=== PATIENT | male | born 1945 | race Caucasian/White ===

== ENCOUNTER 2016-12-26 16:56 | Inpatient (IN) | payer OTHER ==
[~2016-12-26] VITALS: Ht 170.2 cm; Wt 77.3 kg
[2016-12-26] MEDS ORDERED: NORepinephrine 8MG/250 ML (PMX 250 ML ONE (17:27)
[2016-12-26] MEDS ORDERED: PROPOFOL 100 ML ONE (17:29)
[2016-12-26] MEDS ORDERED: SUCCINYLCHOLINE CHLORIDE 100 MG/5 ML SYG IV STA (17:38)
[2016-12-26] MEDS ORDERED: PROPOFOL 100 ML IV STA (17:38)
[2016-12-26] MEDS ORDERED: ETOMIDATE 20 MG INJ IV STA (17:38)
[2016-12-26] MEDS ORDERED: HYDR12.58 PO (17:42)
[2016-12-26] MEDS ORDERED: LISI20TA11 PO (17:42)
[2016-12-26] MEDS ORDERED: LISI20TA PO (17:42)
[2016-12-26] MEDS ORDERED: IBUP800T25 PO (17:43)
[2016-12-26 17:45] LABS: ADD SCAN DIFF NO
[2016-12-26] MEDS ORDERED: NORepinephrine 8MG/250 ML (PMX 250 ML IV STA (17:48)
[2016-12-26 17:49] LABS: ABNORMAL IP MESSAGE 1; HEMATOCRIT 25.6 % (42.0-52.0); MEAN CORPUSCULAR VOLUME 67.9 fl (82.0-101.0); RED BLOOD COUNT 3.77 10^6/ul (4.70-6.10); RED CELL DISTRIBUTION WIDTH 20.5 % (11.5-14.5)
[2016-12-26 17:52] LABS: ALBUMIN 3.2 g/dl (3.3-4.9); CHLORIDE 102 mmol/L (97-110); INR 1.16; PROTIME 14.8 Sec (12.2-14.2); PT RATIO 1.2; SODIUM 136 mmol/L (135-144)
[2016-12-26 17:53] LABS: PARTIAL THROMBOPLASTIN TIME 28.4 Sec (25.0-35.0); POTASSIUM 3.7 mmol/L (3.5-5.1)
[2016-12-26 17:54] LABS: ANION GAP 25 (8-16); BILIRUBIN,INDIRECT 0.1 mg/dl (0-1.1); BILIRUBIN,TOTAL 0.1 mg/dl (0.2-1.3); CARBON DIOXIDE 13 mmol/L (21-31); CREATININE 1.34 mg/dl (0.61-1.24)
[2016-12-26 17:55] LABS: ALANINE AMINOTRANSFERASE 16 IU/L (13-69); ALBUMIN/GLOBULIN RATIO 1.14; ALKALINE PHOSPHATASE 88 IU/L (42-121); ASPARTATE AMINO TRANSFERASE 98 IU/L (15-46); BLOOD UREA NITROGEN 25 mg/dl (7-20); CALCIUM 8.4 mg/dl (8.4-10.2); CREATINE KINASE 392 IU/L (23-200); GLUCOSE 339 mg/dl (70-220)
[2016-12-26 17:58] LABS: ACETAMINOPHEN < 10.0 ug/ml (10.0-30.0); ETHANOL < 10.0 mg/dl; SALICYLATE < 1.0 mg/dl (5.0-30.0)
[2016-12-26] MEDS ORDERED: CEFEPIME 2GM/50 ML (PMX) 50 ML IVPB STA (18:06)
[2016-12-26] MEDS ORDERED: SODIUM CHLORIDE 0.9% 1L BAG IV* STA (18:06)
[2016-12-26] MEDS ORDERED: VECURONIUM 100 MG in DEXTROSE 5% 100 ML IV ONE (18:13)
--- NOTE | 2016-12-26 18:20 | RADRPT ---
PROCEDURE: Chest 1 views. CLINICAL INDICATION: Abnormal breath sounds, altered mental status, central line placement. TECHNIQUE: AP views of the chest was obtained. COMPARISON: None. FINDINGS: The heart is large. Endotracheal tube has its tip approximately 1.6 cm above the esteban. Nasogastri c tube has its distal end in the expected location of the stomach. Left-sided central line has its tip in the expected location of the left innominate vein. Atelectasis is noted in the bilateral low er lobes. No consolidations are identified. No pneumothorax is seen. The osseous structures appea r grossly intact. IMPRESSION: Cardiomegaly . Endotracheal tube with its tip approximately 1.6 cm above the esteban. Retraction by approximately 2 cm can be considered. Nasogastric tube with its distal end in the expected location of the stomach. Left-sided central line with its tip in the expected location of the left innominate vein. Advancem ent by approximately 7 cm can be considered. No visualized pneumothorax. Scattered atelectasis in the bilateral lower lobes. RPTAT: AA .Jan Graham MD, Date Time Electronically viewed and signed by .Jan Graham MD, on 12/26/2016 18:19 .P/
[2016-12-26 18:24] LABS: T3 UPTAKE 36.5 % (23.5-40.5)
[2016-12-26] MEDS ORDERED: VECURONIUM 10 MG VIAL IV ONE (18:30)
[2016-12-26] MEDS ORDERED: LEVOFLOXACIN 750MG/D5W (PMX) 150 ML IVPB ONE (18:30)
[2016-12-26] MEDS ORDERED: ASPIRIN 600 MG SUPP PR ONE (18:30)
[2016-12-26] MEDS ORDERED: VANCOMYCIN 1 GM (PMX) 250 ML IVPB ONE (18:30)
[2016-12-26 18:32] LABS: AADO2 Arterial 284.8 mmHg (7.0-24.0); Arterial Base Excess -11.7 mmol/L (-3.0-3); Arterial COHb 0.3 % (0.0-3.0); Arterial Fraction of Oxyhgb 98.6 % (93.0-99.0); Arterial HCO3 14.2 mmol/L (22.0-26.0); Arterial MetHb 0.9 % (0.0-1.5); MODE VENT - AC
[2016-12-26 18:35] LABS: MAGNESIUM 2.5 mg/dl (1.7-2.5); PHOSPHORUS 7.3 mg/dl (2.5-4.9)
[2016-12-26 18:47] LABS: LYMPHOCYTES # 7.9 10^3/ul (0.8-2.9); MONOCYTE # 0.5 10^3/ul (0.3-0.9); NEUTROPHIL # 1.9 10^3/ul (1.6-7.5)
[2016-12-26 18:50] LABS: PLATELET ESTIMATE PLT APPEAR ADEQUATE
[2016-12-26 18:53] LABS: BURR CELLS OCCASIONAL; MICROCYTOSIS 1+
[2016-12-26 18:54] LABS: HYPOCHROMASIA 1+
[2016-12-26] MEDS ORDERED: IODIXANOL LOCM 100 ML BTL ONE (19:06)
[2016-12-26] MEDS ORDERED: SOD CHLORIDE 0.9% 100 ML ONE (19:06)
[2016-12-26 19:14] LABS: ADD UMIC NO; URINE BILIRUBIN (Dip) NEGATIVE (NEGATIVE); URINE BLOOD (Dip) NEGATIVE (NEGATIVE); URINE COLOR LT. YELLOW (YELLOW); URINE GLUCOSE (Dip) NEGATIVE (NEGATIVE); URINE KETONES (Dip) NEGATIVE (NEGATIVE); URINE LEUKOCYTE ESTERASE (Dip) NEGATIVE (NEGATIVE); URINE NITRITE (Dip) NEGATIVE (NEGATIVE); URINE TOTAL PROTEIN (Dip) NEGATIVE (NEGATIVE); URINE UROBILINOGEN (Dip) 0.2 E.U./dL (0.1-1.0)
[2016-12-26 19:37] LABS: BARBITURATES Negative (NEGATIVE); BENZODIAZEPINES Negative (NEGATIVE); CANNABINOIDS Negative (NEGATIVE)
[2016-12-26 19:38] LABS: COCAINE Negative (NEGATIVE); OPIATES Negative (NEGATIVE)
[2016-12-26] MEDS ORDERED: INSULIN LISPRO 100 UNIT/ML VIAL SC STA (19:39)
--- NOTE | 2016-12-26 19:39 | ERA ---
ER Documentation Chief Complaint Date/Time DATE: 12/26/16 TIME: 19:31 Chief Complaint R83, FULL ARREST, HAS PULSE ON ARRIVAL HPI This is a 71-year-old male with a past medical history of hypertension who presents to the emergency department brought in by EMS after he had a witnessed cardiac arrest by his just prior to arrival. His indicates that they were in the the [facility] prior to arrival to undergo a deposition when he stated he was complaining of shortness of breath. They got in the car and while driving the patient developed agonal respirations and continue to complain of shortness of breath but did not complain of any chest pain. His became very nervous and noticed a fire station which she immediately pulled into. EMS indicated that the patient had developed a PEA activity. They were unable to secure an airway and underwent bag mask ventilation. They administered CPR and a total of 3 mg of epinephrine and shocked the patient 3 times due to a ventricular fibrillation rhythm. The EMS performed an Accu-Chek was performed and normal. The patient en route had return of spontaneous circulation. The indicates they return from [facility] 2 months prior to arrival. He is compliant with his antihypertensive medications. He denies a recent remote headache. His states he has not complained any calf tenderness or swelling to his lower extremities. He has not had a productive or nonproductive cough recently and no recent hospitalizations. ROS All systems reviewed and are negative except as per history of present illness. Medications Home Meds Reported Medications Ibuprofen* (Ibuprofen*) 800 Mg Tab, 800 MG PO QID, TAB 12/26/16 Hydrochlorothiazide* (Hydrochlorothiazide*) 12.5 Mg Tablet, 12.5 MG PO DAILY, # 30 TAB 12/26/16 Lisinopril* (Lisinopril*) 20 Mg Tablet, 20 MG PO DAILY, #30 TAB 12/26/16 Discontinued Reported Medications Lisinopril* (Prinivil*) 20 Mg Tablet, 20 MG PO DAILY, #30 TAB 12/26/16 Allergies Allergies: Coded Allergies: No Known Allergy (Unverified , 12/26/16) PMhx/Soc Hx Alcohol Use: Yes (SOCIAL) Hx Tobacco Use: Yes Smoking Status: Current some day smoker Physical Exam Vitals Vital Signs Date Time Temp Pulse Resp B/P Pulse Ox O2 Delivery O2 Flow Rate FiO2 12/26/16 19:40 96.2 125 20 167/109 100 Mechanical Ventilator 12/26/16 19:25 96.2 115 20 155/94 100 Mechanical Ventilator 12/26/16 19:10 96.2 118 16 169/97 100 Mechanical Ventilator 12/26/16 19:00 96.2 125 20 166/109 100 Mechanical Ventilator 12/26/16 18:39 60 12/26/16 18:11 96 20 100 100 12/26/16 17:45 97 20 71/50 100 Mechanical Ventilator 12/26/16 17:30 102 21 171/151 100 Mechanical Ventilator 12/26/16 17:15 114 31 111/78 100 Mechanical Ventilator 12/26/16 17:04 127 16 77/52 100 Ambu Bag 12/26/16 17:00 129 17 0/0 99 Physical Exam Constitutional:Well-developed. In severe respiratory distress with agonal respirations HEENT:Normocephalic. Atraumatic.Pupils were equal round reactive to light. Pooling of secretions within the oropharynx peer.No tonsillar exudates. Conjunctival pallor peer Neck: No nuchal rigidity. No lymphadenopathy. No posterior cervical spine tenderness or step-offs. Respiratory: Agonal respirations. No wheezing on end auscultation bilaterally. Breath sounds were equal and symmetrical bilaterally with bag mask ventilation Cardiovascular: Tachycardic.No murmurs. No rubs were appreciated.S1, S2 normal. Distal pulses are palpable 2+ bilaterally. GI: Abdomen was soft. Nontender. Non Distended. No pulsatile abdominal masses or bruits. No rebound. No guarding. Bowel sounds were present and normal. Muscle skeletal: Patient was moving the bilateral upper extremities. No movement of the bilateral lower extremities. Skin: Diaphoretic. Pallor. Skin cool to the touch. NEURO: Patient was unresponsive. Withdrew to pain. Eyes did not open to pain. Aphasic Result Diagram: 12/26/16 1710 12/26/16 171 Results 24 hrs Laboratory Tests Test 12/26/16 17:10 12/26/16 17:28 12/26/16 17:38 12/26/16 19:55 White Blood Count 10.710^3/ul Red Blood Count 3.7710^6/ul Hemoglobin 6.4g/dl Hematocrit 25.6% Mean Corpuscular Volume 67.9fl Mean Corpuscular Hemoglobin 17.0pg Mean Corpuscular Hemoglobin Concent 25.0g/dl Red Cell Distribution Width 20.5% Platelet Count 23486^3/UL Mean Platelet Volume fl Neutrophils % 18.0% Band Neutrophils % 1.0% Lymphocytes % 74.0% Monocytes % 5.0% Eosinophils % % Basophils % % Myelocytes % 2.0% Nucleated Red Blood Cells % 1.0/100WBC Neutrophils # 1.910^3/ul Lymphocytes # 7.910^3/ul Monocytes # 0.510^3/ul Eosinophils # 10^3/ul Basophils # 10^3/ul Nucleated Red Blood Cells # 10^3/ul Platelet Estimate PLT APPEAR ADEQUATE Hypochromasia 1+ Microcytosis 1+ Prothrombin Time 14.8Sec Prothrombin Time Ratio 1.2 INR International Normalized Ratio 1.16 Activated Partial Thromboplast Time 28.4Sec Sodium Level 136mmol/L Potassium Level 3.7mmol/L Chloride Level 102mmol/L Carbon Dioxide Level 13mmol/L Anion Gap 25 Blood Urea Nitrogen 25mg/dl Creatinine 1.34mg/dl Glucose Level 339mg/dl Lactic Acid Level 14.0mmol/L 10.6mmol/L Calcium Level 8.4mg/dl Phosphorus Level 7.3mg/dl Magnesium Level 2.5mg/dl Total Bilirubin 0.1mg/dl Direct Bilirubin 0.00mg/dl Indirect Bilirubin 0.1mg/dl Aspartate Amino Transf (AST/SGOT) 98IU/L Alanine Aminotransferase (ALT/SGPT) 16IU/L Alkaline Phosphatase 88IU/L Ammonia 40umol/l Creatine Kinase 392IU/L Creatine Kinase Index 5.5 Creatinine Kinase MB (Mass) 21.40ng/ml Troponin I 10.300ng/ml Total Protein 6.0g/dl Albumin 3.2g/dl Globulin 2.80g/dl Albumin/Globulin Ratio 1.14 Free Thyroxine Index 2.19ug/ml Thyroxine (T4) 6.0ug/dl Triiodothyronine (T3) Uptake 36.5% Salicylates Level < 1.0mg/dl Acetaminophen Level < 10.0ug/ml Ethyl Alcohol Level < 10.0mg/dl Urine Color LT. YELLOW Urine Clarity SLIGHTLY CLOUDY Urine pH 6.0 Urine Specific [place] 1.020 Urine Ketones NEGATIVE Urine Nitrite NEGATIVE Urine Bilirubin NEGATIVE Urine Urobilinogen 0.2 E.U./dL Urine Leukocyte Esterase NEGATIVE Urine Hemoglobin NEGATIVE Urine Glucose NEGATIVE% Urine Total Protein NEGATIVE Urine Opiates Screen Negative Urine Barbiturates Negative Urine Amphetamines Screen Negative Urine Benzodiazepines Screen Negative Urine Cocaine Screen Negative Urine Cannabinoids Negative Blood Gas Specimen Source Blood arterial Arterial Blood Date Drawn 12/26/2016 6:24:54 PM Arterial Blood pH (Temp corrected) 7.268 Arterial Blood pCO2 (Temp correct) 31.8mmhg Arterial Blood pO2 (Temp corrected) 396.4mmHG Arterial Blood HCO3 14.2mmol/L Arterial Blood Base Excess -11.7mmol/L Arterial Blood Oxygen Saturation 99.8mmHG Harinder Test N/A Arterial Blood Gas Puncture Site Right Brachial Arterial Blood Carboxyhemoglobin 0.3% Arterial Blood Methemoglobin 0.9% Blood Gas A-a O2 Differential 284.8mmHg Oxyhemoglobin Percent 98.6% Total Hemoglobin 7.0g/dl Blood Gas Temperature 37.0C Blood Gas Respiration Rate 16.0 Blood Gas Actual Respiration Rate 16 Blood Gas Modality VENT - AC FiO2 100.0% Blood Gas Tidal Volume 550.0mL Blood Gas Low PEEP Setting 5.0cmH2O Blood Gas Critical Value Read Back DR. MAGAÑA Blood Gas Notified Whom Sena Blood Gas Notified Time 12/26/2016 6:32:36 PM Current Medications Medications (Trade) Dose Ordered Sig/[place] Route PRN Reason Start Time Stop Time Status Last Admin Dose Admin Norepinephrine 250 ml @ ud STK-MED ONCE .ROUTE 12/26/16 17:27 12/26/16 17:28 DC Propofol (Diprivan) 100 ml @ ud STK-MED ONCE .ROUTE 12/26/16 17:29 12/26/16 17:30 DC Succinylcholine Chloride (Anectine Syringe) 100 mg ONCE STAT IV 12/26/16 17:38 12/26/16 17:41 DC Etomidate 10 mg 10 mg ONCE STAT IV 12/26/16 17:38 12/26/16 17:41 DC Propofol 100 ml @ 0 mls/hr ONCE STAT IV 12/26/16 17:38 12/26/16 17:41 DC 12/26/16 18:11 Norepinephrine (Levophed) 250 ml @ 7.5 mls/hr ONCE STAT IV 12/26/16 17:48 12/28/16 03:07 12/26/16 17:56 Sodium Chloride 2400 ml 2,400 ml BOLUS OVER 2 HOURS STAT IV* 12/26/16 18:06 12/26/16 18:07 DC 12/26/16 18:12 Cefepime HCl 50 ml @ 100 mls/hr ONCE STAT IVPB 12/26/16 18:06 12/26/16 18:35 DC 12/26/16 18:34 Vancomycin HCl 250 ml @ 125 mls/hr ONCE ONCE IVPB 12/26/16 18:30 12/26/16 20:29 DC Levofloxacin/ Dextrose (Levaquin 750 Mg/ D5W 150 ml (Pmx)) 150 ml @ 100 mls/hr ONCE ONCE IVPB 12/26/16 18:30 12/26/16 19:59 DC Aspirin 600 mg 600 mg ONCE ONCE OH 12/26/16 18:30 12/26/16 18:31 DC 12/26/16 18:52 Vecuronium [place]/Dextrose (Norcuron/D5W) 100 ml @ 4.63 mls/hr [id number] ONCE IV 12/26/16 18:13 12/27/16 15:48 Vecuronium [place] (Norcuron) 7 mg ONCE ONCE IV 12/26/16 18:30 12/26/16 18:31 DC 12/26/16 18:25 IV Flush 10 ml 10 ml STK-MED ONCE .ROUTE 12/26/16 19:06 12/26/16 19:07 DC 12/26/16 19:06 Sodium Chloride (NS) 100 ml @ ud STK-MED ONCE .ROUTE 12/26/16 19:06 12/26/16 19:07 DC 12/26/16 19:06 Iodixanol (Visipaque Locm) 100 ml STK-MED ONCE .ROUTE 12/26/16 19:06 12/26/16 19:07 DC 12/26/16 19:06 Insulin Human Lispro (Humalog) 5 unit ONCE STAT SC 12/26/16 19:39 12/26/16 19:48 DC Procedures/MDM This is a 71-year-old male who came in with a witnessed cardiac arrest and ACLS protocol was followed the patient was immediately placed on a cardiac rehabilitation program director continuous pulse oximetry and IV access was established by nursing staff. The patient had return of spontaneous circulation but had agonal respirations. Therefore due to impending airway failure, with hypoxia of roughly 90%, the patient was intubated using RSI. 10 mg of etomidate was given followed by 100 mg of succinylcholine. An 8 oh endotracheal tube is seen in past going to the courts by myself using a glide scope, and the patient had a very anterior airway. The tube was secured to the lip line of 23 cm. The tube was confirmed to be in good position with equal and symmetrical breath sounds heard bilaterally, condensation within the tube and the patient during intubation had very frothy secretions. A chest radiograph reviewed by myself and the radiologist indicated the following: Cardiomegaly . Endotracheal tube with its tip approximately 1.6 cm above the esteban. Retraction by approximately 2 cm can be considered. Nasogastric tube with its distal end in the expected location of the stomach. Left-sided central line with its tip in the expected location of the left innominate vein. Advancement by approximately 7 cm can be considered. No visualized pneumothorax. Scattered atelectasis in the bilateral lower lobes. The necessary changes have been made with retraction of the endotracheal tube at roughly [address] scan of the chest was performed. The patient was not hypoxic after intubation. The patient was critically ill and required central venous access. The patient was unable to consent due to the severity of his symptoms and therefore was prepped and draped in a sterile fashion. Time out performed and the left internal jugular vein was cannulated using the Seldinger technique after anesthesia administered with 1% lidocaine locally. A triple lumen catheter used. The guidewire was easily thread into the vessel. The guidewire was retrieved, removed and disposed of. All three ports kylee back venous blood and flushed easily. The line was secured in place with 2 simple interrupted sutures and a biostat was applied over the area in inoculation. The patient tolerated the procedure well with no complications. ED Ultrasound: Central line placed by me using concurrent ultrasound guidance. Real time image archived in the medical record confirms vascular anatomy. When the patient initially arrived an EKG had been performed. This was reviewed by myself and discussed with on-call geotechnicial properties technician Dr. Diaz at 1708; 12 Lead EKG tracing ordered and reviewed by myself showed: Sinus tachycardia 1 of bpm and no arrhythmia. OH interval normal. QRS duration normal. No ST segment elevation Significant ST segment depression in lead V2 V3 as well as the inferior lead to 3 and aVF. The patient's blood glucose was elevated at 339 with no ketosis and received 8 units of subcutaneous Humalog. The patient had an elevated ammonia level and therefore was given lactulose through the NG tube. His indicates he has no history of alcohol abuse. A Henry catheter was placed by nursing staff for measurement of urinary output. The patient had a penile implant. Please note that once ancillary laboratory work returned the patient had an elevated troponin of 10. I re-spoke with the geotechnicial properties technician Dr. Diaz at 1816 p.m. she indicated the patient did not meet criteria at this time to undergo for emergent cardiac catheterization but could benefit upon admission for further cardiac intervention if required. He did receive rectal aspirin. Patient's infectious symptoms have not stabilized and the patient is at risk of rapid decompensation. The patient will be admitted for careful hydration, antibiotic therapy, and infectious source control. Severe Sepsis Assessment: Infectious Source: Aspiration pneumonia End organ damage indicated by: Lactate > 2.0 mmol/L Hypotension( SBP < 90 or >40 mmHG drop or MAP < 65) Acute Resp Failure (sat < 92% w/o oxygen) INR > 1.5 Severe Sepsis Managment: Blood Cultures X 2 before broad spectrum antibiotics initiated within 3 hours of recognition. 30 ml/kg NS bolus Completed Initial Lactate: 14.0 Repeat Lactate pending Septic Shock Assessment (1 hour post 30 ml/kg fluid bolus): Hypotension (SBP < 90 or 40 mmHg drop, MAP < 65): Lactic acid > 4.0 Perfusion Reassessment for Septic Shock: Temp 96.2, Pulse 115, RR 20, BP 155/94 Heart Exam: Tachycardic Lung Exam: No Crackles Capillary Refill: Delayed Peripheral Pulses: Radially present Skin: Pale Hypotensive Treatment (not required for isolated lactic acid elevation): Comfort Care: No Central LIne: Left Internal Jugular Vasopressor started: norepinephrine I considered further perfusion assessment with CVP measurement, SCVO2, bedside ultrasound volume assessment, passive leg raise, trial of further fluid bolus. And preceded with IV fluids and vasopressors Given the severity of the patient's symptoms and is complaining of shortness of breath I did feel is necessary to obtain a CT scan of the patient's head as well as a CT scan of the patient's chest to rule out a pulmonary embolism which showed no evidence of a pulmonary embolism reviewed by the radiologist as well as myself. The patient had severe anemia and was typed and crossed and given 2 units of packed red blood cells in the emergency department. Again a consent could not be obtained by the patient given that he was intubated and this was an emergent procedure. I spoke with the [facility] physician and indicated that I did not feel the patient was stable for transfer given the severity of his symptoms and the fact that he was on hypothermic protocol. They were in agreement with this and case number was [id number]. Therefore the patient will be admitted in serious condition to the ICU under the care of her hospitalist Dr. Ricks. Departure Diagnosis: Primary Impression: History of sudden cardiac arrest successfully resuscitated Additional Impressions: Septic shock Symptomatic anemia Hyperammonemia Acute respiratory acidosis Elevated troponin Condition: Serious EDELMIRA MAGAÑA Dec 26, 2016 19:39
[2016-12-26] MEDS ORDERED: SOD CHLORIDE 0.9% 1,000 ML IV ONE (20:33)
--- NOTE | 2016-12-26 20:49 | RADRPT ---
PROCEDURE: CT Brain without contrast. CLINICAL INDICATION: Mental status changes TECHNIQUE: A CT of the brain was performed on a [id number] 64-slice CT scanner utilizing axial imaging from the skull base through the vertex without IV contrast. Multiplanar reformatted images were made. Images were reviewed on a PACS workstation. The CTDIvol is 43.16 mGy and the DLP is 810 .25 mGycm. One of the following 3 dose reduction techniques were used: Automated exposure control; adjustment of the mA and/or kV according to patient size; or use of iterative reconstruction technique. COMPARISON: None available FINDINGS: There is no intracranial hemorrhage, mass effect, or midline shift. No extra-axial fluid collection is seen. The ventricles and sulci are age appropriate. Mild diffuse volume loss is present. Subtl e decreased attenuation is present in the bilateral centrum semiovale and periventricular white izabela er compatible with mild chronic microvascular ischemic disease. Moderate vascular calcifications ar e present of the bilateral intracranial internal carotid arteries and the vertebral arteries. The visualized scalp and calvarium are normal. The bilateral orbits demonstrate sequela of prior le ns replacement. The bilateral paranasal sinuses are remarkable for a large right maxillary sinus re tention cyst, polyp or polypoid lesion. The bilateral mastoid air cells and middle ear cavities are clear. IMPRESSION: 1. No evidence of acute intracranial hemorrhage, infarcts, or acute intracranial pathology. 2. Mild chronic microvascular ischemic disease and diffuse volume loss. 3. Moderate atherosclerotic vascular disease 4. Right maxillary sinus mucous retention cyst, polyp or polypoid mass . Recommend additional imag ing of the sinuses. RPTAT: HDC .Nancy Bird MD, Date Time Electronically viewed and signed by .Nancy Bird MD, MD on 12/26/2016 20:48 .C/
--- NOTE | 2016-12-26 20:57 | RADRPT ---
PROCEDURE: CTA Chest and pulmonary angiogram. CLINICAL INDICATION: Chest pain and shortness of breath. TECHNIQUE: CT scan of the chest and CT pulmonary angiogram was performed on a multidetector high[employer]r [employer] CT scanner. High-resolution thin slice coronal and sagittal imaging was obtained from the axial source images. 3-D volumetric rendered post processing was performed as well. The patient w as examined following the uncomplicated intravenous administration of 100 cc of Omnipaque-300. The i mages were reviewed on a PACS workstation. The total exam CTDI equals 42.54 mGy, and the total exam DLP equals 774.50 mGy-cm. One of the following 3 dose reduction techniques were used during this CT examination: automated exp osure control; adjustment of the mA and /or kV according to patient size; or use of iterative recons truciton technique COMPARISON: Chest x-ray 12/26/2016 FINDINGS: CT chest: The visualized base of neck and bilateral thyroid lobes are normal. An endotracheal tube is present as well as a enteric tube. A left internal jugular catheter is present with tip in the left innomi dallin or brachial cephalic vein. The lungs are remarkable for left greater than right bibasilar disc oid atelectasis or early infiltrates with a small right pleural effusion. No evidence for pulmonary nodules or masses are present. The central tracheobronchial tree is clear. The mediastinum is unremarkable without evidence for mass or lymphadenopathy. A large hiatal hernia is present. The vascular structures of the mediastinum are normal in course and caliber. Vascular c alcifications are present of the coronary arteries and the aorta appear The heart size is remarkable for mild cardiomegaly without pericardial thickening or effusion. The axillary, subpectoral, and s upraclavicular regions are unremarkable. The surrounding chest wall is unremarkable. Imaging through the upper abdomen demonstrates mild diffuse fatty infiltration of the liver. No foc al lesions are present. The visualized spleen, pancreas, gallbladder, and bilateral adrenal glands are normal. The bilateral kidneys are normal. No evidence for hydroureter nephrosis or nephrourete rolithiasis is present. The imaged osseous structures demonstrates degenerative spondylosis of the spine. The adrenal glands are symmetrically normal. The osseous structures are remarkable for degenerative spondylosis of th e spine. CT pulmonary angiogram: No thrombus, clot, filling defect, or pulmonary web is identified. The pulmonary arteries are migue l in caliber and morphology. No filling defect is present to suggest pulmonary embolism. There is no evidence for pulmonary arterial hypertension. IMPRESSION: 1. No CT evidence for pulmonary embolus. 2. Left greater than right bibasilar discoid atelectasis or early infiltrate with small right pleur al effusion. 3. Mild cardiomegaly and atherosclerotic vascular disease 4. Tubes and lines as indicated above. 5. Degenerative spondylosis of the imaged spine. 6. Mild diffuse fatty infiltration of the liver. RPTAT: HDC .Nancy Bird MD, Date Time Electronically viewed and signed by .Nancy Bird MD, on 12/26/2016 20:56 .C/
[2016-12-26] MEDS ORDERED: LACTULOSE 30ML CUP NGT ONE (21:00)
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
[2016-12-26] MEDS ORDERED: VECURONIUM 10 MG VIAL IV SCH (22:00)
--- NOTE | 2016-12-26 23:02 | RADRPT ---
PROCEDURE: XR Chest. CLINICAL INDICATION: Endotracheal tube tip adjustment. TECHNIQUE: Single frontal chest x-ray. COMPARISON: 12/26/2016 FINDINGS: Endotracheal tube tip is 2.7 cm above esteban, no significant change. NG tube tip is in the stomach. Left internal jugular central venous line tip is just proximal to the SVC. Heart is enlarged. Th ere is hypoventilation with bibasilar atelectasis, unchanged.. There is no pleural effusion. There is no pneumothorax. The osseous structures are unremarkable. IMPRESSION: No significant interval change. RPTAT: HMVK .Alan Tamez MD, Date Time Electronically viewed and signed by .Alan Tamez MD, on 12/26/2016 23:01 .K/
[2016-12-26] MEDS: NORepinephrine 8MG/250 ML (PMX 250 ML IV SCH (23:43)
[2016-12-26] MEDS: PROPOFOL 100 ML IV SCH (23:43)
[2016-12-26 23:50] LABS: RETICULOCYTE COUNT % 1.7 % (0.5-1.5)
[2016-12-26] MEDS: FAMOTIDINE 20 MG INJ IV SCH (23:57)
[2016-12-27] VITALS (38 sets, daily range): BP systolic 74–146; BP diastolic 56–92; PULSE 58–91; RESP 16–24; TEMP 90.5; Ht 170.2 cm; Wt 77.3 kg
[2016-12-27] MEDS ORDERED: VANCOMYCIN IV PER PHARMACY XX SCH (00:30)
[2016-12-27 00:34] LABS: IRON 12 ug/dl (35-150)
[2016-12-27 01:02] LABS: Allen Test ACCEPTAB; Arterial COHb 0.3 % (0.0-3.0); Arterial HCO3 15.1 mmol/L (22.0-26.0); MODE VENT - AC
[2016-12-27 01:02] LABS: FERRITIN 5.3 ng/ml (11.1-264.0)
[2016-12-27 01:24] LABS: TOTAL IRON BINDING CAPACITY 368 ug/dl (241-421)
[2016-12-27 01:31] LABS: AADO2 Arterial 335.8 mmHg (7.0-24.0); Allen Test ACCEPTAB; Arterial Base Excess -12.4 mmol/L (-3.0-3); Arterial COHb 0.3 % (0.0-3.0); Arterial Fraction of Oxyhgb 91.6 % (93.0-99.0); Arterial HCO3 15.1 mmol/L (22.0-26.0); Arterial MetHb 0.4 % (0.0-1.5); Arterial Total Hemglobin 10.5 g/dl (12.0-18.0); MODE VENT - AC
[2016-12-27] MEDS: PROPOFOL 100 ML IV SCH (01:57)
[2016-12-27] MEDS ORDERED: DEXTROSE 50% 50 ML SYRINGE IV PRN ×2 (04:00)
[2016-12-27] MEDS: ACCU-CHEK XX SCH ×19 (04:00→23:09)
[2016-12-27] MEDS ORDERED: INSULIN HUMAN REGULAR 100 UNIT in SOD CHLORIDE 0.9% 99 ML IV SCH ×2 (04:00→04:30)
[2016-12-27 04:32] LABS: ADD SCAN DIFF NO
[2016-12-27 04:38] LABS: ABNORMAL IP MESSAGE 1; HEMATOCRIT 34.3 % (42.0-52.0); HEMOGLOBIN 9.6 g/dl (14.0-18.0); MEAN CORPUSCULAR HEMOGLOBIN 19.7 pg (29.0-33.0); MEAN CORPUSCULAR VOLUME 70.3 fl (82.0-101.0); MEAN PLATELET VOLUME 11.3 fl (7.4-10.4); PLATELET COUNT 330 10^3/UL (140-415); RED BLOOD COUNT 4.88 10^6/ul (4.70-6.10); RED CELL DISTRIBUTION WIDTH 23.7 % (11.5-14.5); WHITE BLOOD COUNT 18.9 10^3/ul (4.8-10.8)
[2016-12-27 04:49] LABS: CALCIUM 7.2 mg/dl (8.4-10.2); CREATININE 0.92 mg/dl (0.61-1.24); POTASSIUM 3.7 mmol/L (3.5-5.1)
[2016-12-27 05:01] LABS: LYMPHOCYTES # 0.9 10^3/ul (0.8-2.9); MONOCYTE # 1.1 10^3/ul (0.3-0.9); NEUTROPHIL # 16.1 10^3/ul (1.6-7.5)
[2016-12-27 05:54] LABS: AADO2 Arterial 323.3 mmHg (7.0-24.0); Allen Test ACCEPTAB; Arterial Base Excess -10.8 mmol/L (-3.0-3); Arterial COHb 0.3 % (0.0-3.0); Arterial Fraction of Oxyhgb 93.9 % (93.0-99.0); Arterial HCO3 17.1 mmol/L (22.0-26.0); Arterial MetHb 0.5 % (0.0-1.5); Arterial Total Hemglobin 11.2 g/dl (12.0-18.0); MODE VENT - AC
[2016-12-27 06:24] LABS: INR 1.18; PARTIAL THROMBOPLASTIN TIME 28.1 Sec (25.0-35.0); PROTIME 15.1 Sec (12.2-14.2); PT RATIO 1.2
[2016-12-27 06:49] LABS: CALCIUM 7.2 mg/dl (8.4-10.2); MAGNESIUM 1.7 mg/dl (1.7-2.5); PHOSPHORUS 4.6 mg/dl (2.5-4.9)
[2016-12-27] MEDS ORDERED: VANCOMYCIN 1.25 GM in SOD CHLORIDE 0.9% 250 ML IVPB SCH (09:00)
[2016-12-27] MEDS: CEFEPIME 2GM/50 ML (PMX) 50 ML IVPB SCH ×2 (09:01→21:30)
[2016-12-27] MEDS: FAMOTIDINE 20 MG INJ IV SCH ×2 (09:02→20:43)
[2016-12-27] MEDS: VANCOMYCIN 1 GM in NS 250 ML IVPB SCH ×2 (09:34→21:19)
[2016-12-27] MEDS: NORepinephrine 8MG/250 ML (PMX 250 ML IV SCH (10:51)
[2016-12-27] MEDS ORDERED: DEXTROSE 5%-0.45% NACL 1,000 ML IV SCH (12:00)
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
[2016-12-27] MEDS: SODIUM BICARBONATE (IV ADD) 100 MEQ in DEXTROSE 5%-0.45% NACL 1,000 ML IV SCH ×2 (12:13→23:39)
[2016-12-27 12:37] LABS: AADO2 Arterial 310.6 mmHg (7.0-24.0); Allen Test ACCEPTAB; Arterial Base Excess -13.9 mmol/L (-3.0-3); Arterial COHb 0.3 % (0.0-3.0); Arterial Fraction of Oxyhgb 95.8 % (93.0-99.0); Arterial HCO3 14.1 mmol/L (22.0-26.0); Arterial MetHb 0.4 % (0.0-1.5); Arterial Total Hemglobin 10.9 g/dl (12.0-18.0); MODE VENT - AC
--- NOTE | 2016-12-27 13:20 | CONS ---
Date/Time of Note Date/Time of Note DATE: 12/27/16 TIME: 13:13 Assessment/Plan Assessment/Plan Additional Assessment/Plan Cardiopulmonary arrest Myocardial infarction Respiratory failure Acute blood loss anemia status post blood transfusion -Patient currently on hypothermia protocol. Troponins are trending down. Continue aspirin therapy, statin therapy, would start IV heparin with close monitoring of hemoglobin given patient with severe anemia upon initial evaluation. No beta-dante or JUANITA inhibitor given hypotension. Check echocardiogram. Consultation Date/Type/Reason Admit Date/Time 12/26/162104 Type of Consultation: cv Reason for Consultation Cardiac arrest Hx of Present Illness This is a 71-year-old male with past medical history of hypertension who had a witnessed cardiac arrest yesterday. History was obtained from the medical chart. Patient was at the court house and afterwards had symptoms of worsening shortness of breath. Patient's was driving him to the emergency room but because of worsening symptoms, stopped at a fire station close by. As per the records, patient arrested and was in PEA. ACLS protocol was performed and patient was brought to the emergency room for further evaluation and care. Discussion was had overnight with the on-call STEMI lumber inspector and emergency room. Patient was admitted and placed on hypothermia protocol. Troponins were elevated and are currently trending down. Patient is currently sedated and intubated. Unable to be performed at the current time given patient sedated and intubated Past Medical History Medical History: hypertension Past Surgical History Unknown Social History Alcohol Use: occasionally Smoking Status: Current some day smoker Exam/Review of Systems Vital Signs Vitals Vital Signs Date Time Temp Pulse Resp B/P Pulse Ox O2 Delivery O2 Flow Rate FiO2 12/27/16 11:53 92.4 81 16 115/68 97 Mechanical Ventilator 12/27/16 07:30 60 Intake and Output 12/26/16 12/26/16 12/27/16 15:00 23:00 07:00 Intake Total 1100 ml 2800 ml Output Total 200 ml 380 ml Balance 900 ml 2420 ml Exam Sedated and intubated, no apparent distress Head: normocephalic ENMT: intubated Respiratory: other (Coarse breath sounds bilaterally, no wheezing) Cardiovascular: other (S1-S2 heard), regular rate and rhythm Gastrointestinal: bowel sounds, other (No grimacing with palpation), soft Extremities: edema, other (No cyanosis) Results Result Diagram: 12/27/16 0400 12/27/16 0400 Results 24 hrs Laboratory Tests Test 12/26/16 17:10 12/26/16 17:28 12/26/16 17:38 12/26/16 19:55 White Blood Count 10.7 Red Blood Count 3.77 L Hemoglobin 6.4 *L Hematocrit 25.6 L Mean Corpuscular Volume 67.9 L Mean Corpuscular Hemoglobin 17.0 L Mean Corpuscular Hemoglobin Concent 25.0 L Red Cell Distribution Width 20.5 H Platelet Count 306 Mean Platelet Volume Neutrophils % 18.0 L Band Neutrophils % 1.0 Lymphocytes % 74.0 H Monocytes % 5.0 Eosinophils % Basophils % Myelocytes % 2.0 H Nucleated Red Blood Cells % 1.0 H Neutrophils # 1.9 Lymphocytes # 7.9 H Monocytes # 0.5 Eosinophils # Basophils # Nucleated Red Blood Cells # Platelet Estimate PLT APPEAR ADEQUATE Hypochromasia 1+ Microcytosis 1+ Prothrombin Time 14.8 H Prothrombin Time Ratio 1.2 INR International Normalized Ratio 1.16 Activated Partial Thromboplast Time 28.4 Sodium Level 136 Potassium Level 3.7 Chloride Level 102 Carbon Dioxide Level 13 L Anion Gap 25 H Blood Urea Nitrogen 25 H Creatinine 1.34 H Glucose Level 339 H Lactic Acid Level 14.0 *H 10.6 *H Calcium Level 8.4 Phosphorus Level 7.3 H Magnesium Level 2.5 Total Bilirubin 0.1 L Direct Bilirubin 0.00 Indirect Bilirubin 0.1 Aspartate Amino Transf (AST/SGOT) 98 H Alanine Aminotransferase (ALT/SGPT) 16 Alkaline Phosphatase 88 Ammonia 40 H Creatine Kinase 392 H Creatine Kinase Index 5.5 Creatinine Kinase MB (Mass) 21.40 H Troponin I 10.300 *H Total Protein 6.0 L Albumin 3.2 L Globulin 2.80 Albumin/Globulin Ratio 1.14 Free Thyroxine Index 2.19 Thyroxine (T4) 6.0 Triiodothyronine (T3) Uptake 36.5 Salicylates Level < 1.0 L Acetaminophen Level < 10.0 L Ethyl Alcohol Level < 10.0 Urine Color LT. YELLOW Urine Clarity SLIGHTLY CLOUDY Urine pH 6.0 Urine Specific Casar 1.020 Urine Ketones NEGATIVE Urine Nitrite NEGATIVE Urine Bilirubin NEGATIVE Urine Urobilinogen 0.2 E.U./dL Urine Leukocyte Esterase NEGATIVE Urine Hemoglobin NEGATIVE Urine Glucose NEGATIVE Urine Total Protein NEGATIVE Urine Opiates Screen Negative Urine Barbiturates Negative Urine Amphetamines Screen Negative Urine Benzodiazepines Screen Negative Urine Cocaine Screen Negative Urine Cannabinoids Negative Blood Gas Specimen Source Blood arterial Arterial Blood Date Drawn 12/26/2016 6:24:54 PM Arterial Blood pH (Temp corrected) 7.268 *L Arterial Blood pCO2 (Temp correct) 31.8 L Arterial Blood pO2 (Temp corrected) 396.4 H Arterial Blood HCO3 14.2 L Arterial Blood Base Excess -11.7 L Arterial Blood Oxygen Saturation 99.8 Harinder Test N/A Arterial Blood Gas Puncture Site Right Brachial Arterial Blood Carboxyhemoglobin 0.3 Arterial Blood Methemoglobin 0.9 Blood Gas A-a O2 Differential 284.8 H Oxyhemoglobin Percent 98.6 Total Hemoglobin 7.0 L Blood Gas Temperature 37.0 Blood Gas Respiration Rate 16.0 Blood Gas Actual Respiration Rate 16 Blood Gas Modality VENT - AC FiO2 100.0 Blood Gas Tidal Volume 550.0 Blood Gas Low PEEP Setting 5.0 Blood Gas Critical Value Read Back DR. MAGAÑA Blood Gas Notified Whom M.Reed Blood Gas Notified Time 12/26/2016 6:32:36 PM Test 12/26/16 21:16 12/26/16 23:45 12/27/16 00:00 12/27/16 03:42 Bedside Glucose 211 152 Absolute Reticulocyte Count 0.080 Percent Reticulocyte Count 1.7 H Lactic Acid Level 2.6 H Iron Level 12 L Total Iron Binding Capacity 368 Percent Iron Saturation 3 L Ferritin 5.3 L Lactate Dehydrogenase 1233 H Troponin I 13.800 *H Blood Gas Specimen Source Blood arterial Arterial Blood Date Drawn 12/27/2016 12:50:00 AM Arterial Blood pH (Temp corrected) 7.241 *L Arterial Blood pCO2 (Temp correct) 34.1 L Arterial Blood pO2 (Temp corrected) 60.1 L Arterial Blood HCO3 15.1 L Arterial Blood Base Excess -12.4 L Arterial Blood Oxygen Saturation 92.2 L Harinder Test ACCEPTAB Arterial Blood Gas Puncture Site Left Radial Arterial Blood Carboxyhemoglobin 0.3 Arterial Blood Methemoglobin 0.4 Blood Gas A-a O2 Differential 335.8 H Oxyhemoglobin Percent 91.6 L Total Hemoglobin 10.5 L Blood Gas Temperature 33.0 Blood Gas Respiration Rate 16.0 Blood Gas Actual Respiration Rate 16 Blood Gas Modality VENT - AC FiO2 60.0 Blood Gas Tidal Volume 550.0 Blood Gas Low PEEP Setting 5.0 Blood Gas Critical Value Read Back S AYANA RN Blood Gas Notified Whom Ramses TRAN Blood Gas Notified Time 12/27/2016 1:01:00 AM Test 12/27/16 04:00 12/27/16 04:56 12/27/16 05:00 12/27/16 06:00 White Blood Count 18.9 #H Red Blood Count 4.88 # Hemoglobin 9.6 #L Hematocrit 34.3 #L Mean Corpuscular Volume 70.3 L Mean Corpuscular Hemoglobin 19.7 L Mean Corpuscular Hemoglobin Concent 28.0 L Red Cell Distribution Width 23.7 H Platelet Count 330 Mean Platelet Volume 11.3 H Neutrophils % 85.0 H Band Neutrophils % 4.0 Lymphocytes % 5.0 L Monocytes % 6.0 Neutrophils # 16.1 H Lymphocytes # 0.9 Monocytes # 1.1 H Differential Comment MANUAL DIFF Prothrombin Time 15.1 H Prothrombin Time Ratio 1.2 INR International Normalized Ratio 1.18 Activated Partial Thromboplast Time 28.1 Fibrinogen 249.0 Sodium Level 138 Potassium Level 3.7 Chloride Level 114 H Carbon Dioxide Level 19 L Anion Gap 9 # Blood Urea Nitrogen 27 H Creatinine 0.92 Glucose Level 140 # Calcium Level 7.2 L 7.2 L Troponin I 10.200 *H Bedside Glucose 148 Lactic Acid Level 1.8 Phosphorus Level 4.6 # Magnesium Level 1.7 Amylase Level 41 Lipase 29 Blood Gas Specimen Source Blood arterial Arterial Blood Date Drawn 12/27/2016 5:45:51 AM Arterial Blood pH (Temp corrected) 7.239 *L Arterial Blood pCO2 (Temp correct) 38.7 Arterial Blood pO2 (Temp corrected) 67.6 L Arterial Blood HCO3 17.1 L Arterial Blood Base Excess -10.8 L Arterial Blood Oxygen Saturation 94.7 L Harinder Test ACCEPTAB Arterial Blood Gas Puncture Site Right Radial Arterial Blood Carboxyhemoglobin 0.3 Arterial Blood Methemoglobin 0.5 Blood Gas A-a O2 Differential 323.3 H Oxyhemoglobin Percent 93.9 Total Hemoglobin 11.2 L Blood Gas Temperature 33.0 Blood Gas Respiration Rate 16.0 Blood Gas Actual Respiration Rate 16 Blood Gas Modality VENT - AC FiO2 60.0 Blood Gas Tidal Volume 550.0 Blood Gas Low PEEP Setting 5.0 Blood Gas Critical Value Read Back K MISHEL DO Blood Gas Notified Whom UP Blood Gas Notified Time 12/27/2016 5:54:38 AM Test 12/27/16 06:01 12/27/16 07:00 12/27/16 07:52 12/27/16 09:08 Bedside Glucose 151 138 135 137 Test 12/27/16 10:06 12/27/16 11:06 12/27/16 12:00 12/27/16 12:04 Bedside Glucose 170 163 141 Blood Gas Specimen Source Blood arterial Arterial Blood Date Drawn 12/27/2016 12:20:00 PM Arterial Blood pH (Temp corrected) 7.203 *L Arterial Blood pCO2 (Temp correct) 34.9 L Arterial Blood pO2 (Temp corrected) 84.2 Arterial Blood HCO3 14.1 L Arterial Blood Base Excess -13.9 L Arterial Blood Oxygen Saturation 96.5 Harinder Test ACCEPTAB Arterial Blood Gas Puncture Site Right Radial Arterial Blood Carboxyhemoglobin 0.3 Arterial Blood Methemoglobin 0.4 Blood Gas A-a O2 Differential 310.6 H Oxyhemoglobin Percent 95.8 Total Hemoglobin 10.9 L Blood Gas Temperature 33.2 Blood Gas Respiration Rate 16.0 Blood Gas Actual Respiration Rate 16 Blood Gas Modality VENT - AC FiO2 60.0 Blood Gas Tidal Volume 550.0 Blood Gas Critical Value Read Back DR GALLARDO Blood Gas Notified Whom JLD Blood Gas Notified Time 12/27/2016 12:37:00 PM Test 12/27/16 12:57 Bedside Glucose 149 Medications Medications Current Medications Vecuronium Bowers/Dextrose (Norcuron/D5W) 100 ml @ 4.63 mls/hr [id number] ONCE IV Last administered on 12/26/16 21:40; Admin Dose 4.63 MLS/HR; Start at 18:13; Stop 12/27/16 at 15:48 Famotidine 20 mg 20 mg Q12 IV Last administered on 12/27/16 09:02; Admin Dose 20 MG; Start 12/26/16 at 23:00 Levofloxacin/ Dextrose 150 ml @ 100 mls/hr Q24H IVPB ; Start 12/27/16 at 23:00 Cefepime HCl (Maxipime 2gm/50 ml (Pmx)) 50 ml @ 100 mls/hr Q12 IVPB Last administered on 12/27/16 09:01; Admin Dose 100 MLS/HR; Start 12/27/16 at 09:00 Dextrose (D50w Syringe) 25 ml Q15M PRN IV Till BS 80 mg/dL or above x2; Start 12/27/16 at 04:00 Diagnostic Test (Pha) (Accu-Chek) 1 ea Q1H XX Last administered on 12/27/16 12 :00; Admin Dose 1 EA; Start 12/27/16 at 04:00 Dextrose 50 ml 50 ml Q15M PRN IV Till BS 80 mg/dL or above x2; Start 12/27/16 at 04:00 Vancomycin HCl (Vancocin) 250 ml @ 125 mls/hr Q12H IVPB Last administered on 09:34; Admin Dose 125 MLS/HR; Start 12/27/16 at 09:30 Miscellaneous Information 1 ONCE ONCE XX ; Start 12/28/16 at 08:30; Stop at 08:31 Sodium Bicarbonate/ Dextrose/Sodium Chloride (Na Bicarb/D5-1/ 2ns) 1,100 ml @ 100 mls/hr Q11H IV Last administered on 12/27/16 12:13; Admin Dose 100 MLS/HR ; Start 12/27/16 at 12:00 Procedures Procedures ECG done yesterday at 1508 demonstrated sinus tachycardia at 105 bpm, inferior ST depressions, ST depressions seen in V3 through V5 with ECG done this morning at 10:34 AM sinus rhythm at 95 bpm, QRS 88 ms, nonspecific STT wave abnormalities Alan Scott DO Dec 27, 2016 13:20
[2016-12-27] MEDS ORDERED: HEPARIN 1000 UNITS/ML 10 ML INJ IV PRN (13:30)
[2016-12-27 13:36] LABS: ADD SCAN DIFF NO
[2016-12-27 13:45] LABS: CREATININE 0.91 mg/dl (0.61-1.24); POTASSIUM 3.7 mmol/L (3.5-5.1)
[2016-12-27 13:46] LABS: CALCIUM 6.9 mg/dl (8.4-10.2)
[2016-12-27] MEDS: ASPIRIN 81 MG TAB NGT SCH (13:46)
[2016-12-27 13:49] LABS: INR 1.17; PT RATIO 1.2
[2016-12-27 13:50] LABS: PARTIAL THROMBOPLASTIN TIME 28.6 Sec (25.0-35.0)
[2016-12-27 14:08] LABS: HEMATOCRIT 34.5 % (42.0-52.0); HEMOGLOBIN 9.5 g/dl (14.0-18.0); MEAN CORPUSCULAR VOLUME 71.4 fl (82.0-101.0); RED BLOOD COUNT 4.83 10^6/ul (4.70-6.10); WHITE BLOOD COUNT 18.9 10^3/ul (4.8-10.8)
[2016-12-27 14:09] LABS: BASOPHILS % 0.1 % (0.0-2.0); LYMPHOCYTES % 4.3 % (15.0-51.0); MEAN CORPUSCULAR HEMOGLOBIN 19.7 pg (29.0-33.0); MEAN CORPUSCULAR HGB CONC 27.5 g/dl (32.0-37.0); MONOCYTES % 7.3 % (0.0-11.0); PLATELET COUNT 340 10^3/UL (140-440); RED CELL DISTRIBUTION WIDTH 58.4 % (11.5-14.5)
[2016-12-27 14:10] LABS: LYMPHOCYTES # 0.8 10^3/ul (0.8-2.9); MONOCYTE # 1.4 10^3/ul (0.3-0.9); NEUTROPHIL # 16.7 10^3/ul (1.6-7.5); NUCLEATED RED BLOOD CELLS% 0.2 /100WBC (0.0-0.0)
[2016-12-27 14:27] LABS: TROPONIN-I 5.94 ng/ml (0.00-0.12)
--- NOTE | 2016-12-27 18:02 | RADRPT ---
Echocardiogram Report Patient Name: ARMANDO GARCIA Gender: Male Date: 1945 Study Date: 27-Dec-2016 Rn Urology: [facility] Location: 4 Ref. Physician: MAYRA WEST Quality: Good Procedures: Transthoracic echocardiogram with complete 2D, M-Mode, and doppler examination. Indications: Cardiac Arrest. 2D/M Mode Doppler Measurement Value Normal Ranges Measurement Value Normal Ranges LVIDd 2D 4.5 3.5 - 5.6 cm AV Peak Luis 1.1 m/sec LVIDs 2D 2.6 2.1 - 4.1 cm AV Peak PG 5.1 mmHg LVPWd 2D 0.8 0.6 - 1.1 cm LVOT Peak Luis 0.7 m/sec IVSd 2D 0.8 0.6 - 1.1 cm LVOT Peak PG 2.2 mmHg AoR Diam 2D 2.9 2.0 - 3.7 cm MV E Peak Luis 0.6 m/sec EDV 2D 94.7 cm3 MV A Peak Luis 0.9 m/sec ESV 2D 16.6 cm3 MV E/A 0.7 LA Dimen 2D 3.8 2.3 - 4.0 cm MV Decel Time 146 msec MV Decel [place] 4 MV E/A 0.7 TR Peak Luis 2.7 m/sec TR Peak PG 29.7 mmHg RVSP 38.0 mmHg Findings Left Ventricle: Normal left ventricular cavity size. Normal left ventricular wall thickness. Moderate left ventricular systolic dysfunction. Ejection fraction is visually estimated at 40 %. Tissue Doppler/Mitral Doppler indices are consistent with impaired relaxation (Stage I diastolic dysfunction). These segments of the LV are hypokinetic Lateral apex, anterior apex segment, inferior apex segment, apex, apical septum, inferior mid segment, inferolateral mid segment, Lateral mid segment, mid septum segment, anteroseptum mid segment and mid anterior segment. Right Ventricle: Normal right ventricular size. Normal right ventricular systolic function. Left Atrium: The left atrium is normal in size. Right Atrium: The right atrium is normal in size. Mitral Valve: Mitral valve leaflets appear mildly thickened. Mild mitral annular calcification. Mild mitral valve regurgitation. Aortic Valve: Normal appearance of the aortic valve. No significant aortic stenosis or insufficiency. Tricuspid Valve: Estimated peak PA systolic pressure 38 mmHg. There is trace tricuspid regurgitation. Pulmonic Valve: Pulmonic valve not well visualized. Pericardium: Normal pericardium with no significant pericardial effusion. Aorta: Normal aortic root. IVC: Inferior vena cava without respiratory collapse, however, patient on ventilator. Conclusions 1.Normal left ventricular cavity size. Normal left ventricular wall thickness. Moderate left ventricular systolic dysfunction. Ejection fraction is visually estimated at 40 %. Tissue Doppler/Mitral Doppler indices are consistent with impaired relaxation (Stage I diastolic dysfunction). Multiple wall motion abnormalities. 2.Normal right ventricular size. Normal right ventricular systolic function. 3.The left atrium is normal in size. 4.The right atrium is normal in size. 5.Mild mitral valve regurgitation. 6.No significant valvular stenosis or regurgitation seen of remaining visualized valves. 7.Normal pericardium with no significant pericardial effusion. Electronically Signed By: Alan Scott 27-Dec-2016 18:01:43 -0700 Patient Name: ARMANDO GARCIA Study Date: 27-Dec-2016 [id number]
[2016-12-27] MEDS: HEPARIN 25000 UNITS/250 ML 250 ML IV SCH (18:06)
[2016-12-27 18:30] LABS: AADO2 Arterial 255.7 mmHg (7.0-24.0); Allen Test ACCEPTAB; Arterial Base Excess -10.5 mmol/L (-3.0-3); Arterial COHb 0.3 % (0.0-3.0); Arterial Fraction of Oxyhgb 96.3 % (93.0-99.0); Arterial HCO3 15.3 mmol/L (22.0-26.0); Arterial MetHb 0.4 % (0.0-1.5); Arterial Total Hemglobin 10.9 g/dl (12.0-18.0); MODE VENT - AC
[2016-12-27 19:48] LABS: ADD SCAN DIFF NO
[2016-12-27 19:53] LABS: CHLORIDE 109 mmol/L (97-110); SODIUM 137 mmol/L (135-144)
[2016-12-27 19:54] LABS: INR 1.36; POTASSIUM 3.4 mmol/L (3.5-5.1); PROTIME 16.8 Sec (12.2-14.2); PT RATIO 1.3
[2016-12-27 19:56] LABS: ANION GAP 14 (8-16); BLOOD UREA NITROGEN 25 mg/dl (7-20); CARBON DIOXIDE 17 mmol/L (21-31); CREATININE 0.89 mg/dl (0.61-1.24)
[2016-12-27 19:57] LABS: GLUCOSE 170 mg/dl (70-220); MAGNESIUM 1.7 mg/dl (1.7-2.5); PHOSPHORUS 3.3 mg/dl (2.5-4.9)
[2016-12-27 19:58] LABS: ABNORMAL IP MESSAGE 1; HEMATOCRIT 32.2 % (42.0-52.0); HEMOGLOBIN 9.4 g/dl (14.0-18.0); MEAN CORPUSCULAR HEMOGLOBIN 20.3 pg (29.0-33.0); MEAN CORPUSCULAR HGB CONC 29.2 g/dl (32.0-37.0); MEAN CORPUSCULAR VOLUME 69.7 fl (82.0-101.0); PLATELET COUNT 256 10^3/UL (140-415); RED BLOOD COUNT 4.62 10^6/ul (4.70-6.10); RED CELL DISTRIBUTION WIDTH 22.5 % (11.5-14.5); WHITE BLOOD COUNT 15.3 10^3/ul (4.8-10.8)
[2016-12-27 19:59] LABS: AMYLASE < 30 U/L (11-123)
[2016-12-27] MEDS ORDERED: VECURONIUM 100 MG in DEXTROSE 5% 100 ML IV SCH (20:00)
[2016-12-27] MEDS: ATORVASTATIN 80 MG TAB NGT SCH (20:43)
[2016-12-27 20:44] LABS: LYMPHOCYTES # 0.8 10^3/ul (0.8-2.9); MONOCYTE # 0.8 10^3/ul (0.3-0.9); NEUTROPHIL # 9.5 10^3/ul (1.6-7.5)
[2016-12-27 20:48] LABS: ANISOCYTOSIS 1+; PLATELET ESTIMATE PLT APPEAR ADEQUATE
--- NOTE | 2016-12-27 21:06 | RADRPT ---
PROCEDURE: XR Chest. CLINICAL INDICATION: ET tube placement verification TECHNIQUE: PA and Lateral views of the chest were obtained. COMPARISON: None. FINDINGS: The soft tissues are normal. There are degenerative osteophytes in the thoracic spine. The left ve ntricle is enlarged. The cardiomediastinal silhouette and hilar structures are normal. The pulmonar y vasculature is upper limits of normal. There is a left-sided aorta. There are right perihilar infi ltrates. There is a left lower lobe infiltrate silhouetting the left diaphragm. Bilateral pleural effusions are suspected. The endotracheal tube is well-positioned at T4. An NG tube is positioned distal to the GE junction. IMPRESSION: 1. The endotracheal tube is well-positioned at the level of T3-T4 approximately 7 cm proximal to the esteban. 2. Cardiomegaly with left ventricular enlargement. 3. Left lower lobe infiltrates with a left lower lobe with a left pleural effusion. 4. Right perihilar and right lower lobe infiltrates with a right pleural effusion. RPTAT:AAJJ Physician Monalisa Date Time Electronically viewed and signed by Physician Monalisa on 12/27/2016 21:05 /
--- NOTE | 2016-12-27 21:29 | PN ---
DATE: 12/27/2016 SUBJECTIVE: The patient is still intubated, on pressor support, on an insulin drip, seen by pulmona ry and cardiology teams. The patient was given 2 units of PRBC transfusion as well. OBJECTIVE: VITAL SIGNS: T-max 92.4. Patient is on hypothermia protocol. Pulse is 69 to 99, respirations 16, blood pressure 110/56, saturating at 100% on mechanical ventilation, FIO2 at 60. GENERAL: The patient is lying in bed, intubated, sedated. HEENT: Unable to fully assess. NECK: Supple. No thyromegaly. LUNGS: Distant breath sounds bilaterally. CARDIOVASCULAR: S1, S2 heard. No rubs or gallops. ABDOMEN: Soft, nontender, nondistended. Normal bowel sounds. No rebound or guarding. MUSCULOSKELETAL: No lower extremity edema bilaterally. NEUROLOGIC: Unable to fully assess. LABORATORY: ABG, pH of 7.20, pCO2 of 34, PaO2 of 84, bicarbonate of 14.1. The basic metabolic pane l is normal. Last troponin was 10.2. CBC showed a white count of 18.9, hemoglobin 9.6, hematocrit 34.3, platelets of 330. IMAGING: CTA showed no evidence of any pulmonary embolism. ASSESSMENT AND PLAN: A 71-year-old male status post cardiac arrest, now in septic shock, intubated and sedated, on hypothermia protocol. 1. Status post cardiac arrest. Follow up cardiology recommendations. Continue ICU level of care. Continue hypothermia protocol. Per cardiology recommendations, should continue to trend troponins. They will start IV heparin as well, given the elevated troponins and aspirin and statin therapy, h olding JUANITA inhibitor and beta dante, given hypotension. Continue pressor support as well. Follow up echocardiogram results. Continue insulin drip as well. 2. Respiratory distress. Again, patient intubated. Follow up pulmonary recommendations, includin g mechanical ventilation. Follow up echocardiogram results and pulmonary recommendations. Patient recommended for IV bicarbonate, given metabolic acidosis. Continue broad spectrum antibiotics as wel l. 3. For elevated troponins. Again, see #1. Follow cardiology recommendations, aspirin and heparin drip, trend troponins. Follow up echocardiogram results. 4. Hypertension. Again, because the patient is hypotensive presently, holding all blood pressure m edicines for now, on pressor support, try to wean down as tolerated. 5. Deep venous thrombosis prophylaxis. Heparin subcutaneously. 6. Gastrointestinal prophylaxis. Famotidine. Critical care time spent on this patient's care today was 45 minutes. Dictated By: GENNA QUINTEROS Conf#: [id number] DID#: [id number]
[2016-12-27] MEDS ORDERED: SOD CHLORIDE 0.9% 1,000 ML IV ONE (22:00)
[2016-12-27] MEDS: LEVOFLOXACIN 750MG/D5W (PMX) 150 ML IVPB SCH (23:00)
[2016-12-28] VITALS (102 sets, daily range): BP systolic 73–155; BP diastolic 49–88; PULSE 58–120; RESP 19–30
[2016-12-28 00:26] LABS: ADD SCAN DIFF NO
[2016-12-28 00:28] LABS: ABNORMAL IP MESSAGE 1; HEMATOCRIT 27.5 % (42.0-52.0); HEMOGLOBIN 8.2 g/dl (14.0-18.0); MEAN CORPUSCULAR HEMOGLOBIN 20.5 pg (29.0-33.0); MEAN CORPUSCULAR HGB CONC 29.8 g/dl (32.0-37.0); MEAN CORPUSCULAR VOLUME 68.8 fl (82.0-101.0); PLATELET COUNT 199 10^3/UL (140-415); RED CELL DISTRIBUTION WIDTH 22.1 % (11.5-14.5); WHITE BLOOD COUNT 13.2 10^3/ul (4.8-10.8)
[2016-12-28] MEDS: ACCU-CHEK XX SCH ×25 (00:29→23:35)
[2016-12-28] MEDS: ARTIFICIAL TEARS 15 ML OPH BOTH EYES SCH ×4 (00:34→17:27)
[2016-12-28] MEDS: ACETAMINOPHEN 650MG/20.3ML CUP NGT SCH ×5 (00:34→23:30)
[2016-12-28] MEDS: OCULAR LUBRICANT 3.5 GM OPH OINT BOTH EYES SCH ×4 (00:34→17:27)
[2016-12-28] MEDS: LEVOFLOXACIN 750MG/D5W (PMX) 150 ML IVPB SCH ×2 (00:34→22:38)
[2016-12-28 00:36] LABS: AADO2 Arterial 256.7 mmHg (7.0-24.0); Arterial Base Excess -8.6 mmol/L (-3.0-3); Arterial Fraction of Oxyhgb 96.6 % (93.0-99.0); Arterial MetHb 0.5 % (0.0-1.5); Arterial Total Hemglobin 9.5 g/dl (12.0-18.0)
[2016-12-28 00:41] LABS: CALCIUM 6.6 mg/dl (8.4-10.2); CREATININE 0.75 mg/dl (0.61-1.24); POTASSIUM 3.2 mmol/L (3.5-5.1)
[2016-12-28 00:42] LABS: MAGNESIUM 1.6 mg/dl (1.7-2.5); PHOSPHORUS 2.5 mg/dl (2.5-4.9)
[2016-12-28 00:44] LABS: AMYLASE < 30 U/L (11-123); INR 1.41; PROTIME 17.3 Sec (12.2-14.2); PT RATIO 1.4
--- NOTE | 2016-12-28 01:22 | RADRPT ---
PROCEDURE: Portable chest x-ray. CLINICAL INDICATION: Endotracheal tube repositioning. TECHNIQUE: Portable AP view of the chest. COMPARISON: 12/28/2016 at 12:20 a.m.. FINDINGS: An endotracheal tube terminates approximately 4.7 cm above the esteban. A nasogastric tube terminates in the stomach. There is mild vascular congestion. Small to moderate right and small left pleural effusions are not significantly changed. The cardiac silhouette is not enlarged. There is no pneum othorax. IMPRESSION: 1. Endotracheal tube tip approximately 4.7 cm above the esteban. 2. Nasogastric tube tip in the stomach.. 3. Mild vascular congestion. 4. Small to moderate right and small left pleural effusions, not significantly changed. Superimpos ed pulmonary edema, atelectasis, or pneumonia is not excluded. RPTAT: HTAR .Stalin Noble MD, Date Time Electronically viewed and signed by .Stalin Noble MD, on 12/28/2016 01:22 .R/
[2016-12-28 03:10] LABS: LYMPHOCYTES # 0.9 10^3/ul (0.8-2.9); MONOCYTE # 0.8 10^3/ul (0.3-0.9); NEUTROPHIL # 8.6 10^3/ul (1.6-7.5)
[2016-12-28 03:11] LABS: PLATELET ESTIMATE PLT APPEAR ADEQUATE
--- NOTE | 2016-12-28 03:31 | CONS ---
DATE OF ADMISSION: 12/26/2016 DATE OF CONSULTATION: 12/27/2016 TYPE OF CONSULTATION: Neurology. Thank you, Dr. Tinajero, for your kind referral for evaluation of anoxic encephalopathy. HISTORY OF PRESENT ILLNESS: The patient is a 71-year-old gentleman with past medical history of hyp ertension who had witnessed cardiac arrest yesterday. According to the chart, he was at [facility] and started getting worsening of shortness of breath. He was on the way to emergency room, but kam use of worsening of symptoms, his stopped at the fire station, and according to the records, he arrested and was with PEA. On admission, the patient was placed on hypothermia protocol, and curre ntly he is sedated and paralyzed. He had CAT scan of the head done which shows absence of acute abn ormality. CTA negative, bibasilar atelectasis, mild cardiomegaly. LABORATORY DATA: WBC count 15, hemoglobin 9.4, hematocrit 32.6. On admission, he presented with he moglobin 6.4 and hematocrit 25, normal platelets. Today's labs, potassium 3.4, bicarbonate 17, BUN 25, calcium 7, lactate 4.1. The rest of basic metabolic panel within normal limits. Liver function tests: Albumin 3.2, total protein 6.0. AST 98 on admission. ALLERGIES: NONE. SOCIAL HISTORY: Smoker, occasional alcohol use. No drugs. FAMILY HISTORY: Unknown. CURRENT MEDICATIONS: 1. Levofloxacin. 2. Lipitor. 3. ____. 4. Aspirin 81. 5. Heparin. 6. Vancomycin. 7. Cefepime. 8. Insulin. 9. Pepcid. 10. Propofol. 11. Norepinephrine. PHYSICAL EXAMINATION: VITAL SIGNS: Temperature 89.8, pulse 60, respirations 24, blood pressure 128/81. GENERAL: Not in acute distress, intubated orally. HEENT: Normocephalic, atraumatic head, sedated and hypothermic. NECK: Supple. LUNGS: Clear to auscultation. CARDIAC: Normal cardiac rhythm and sounds. ABDOMEN: Soft. EXTREMITIES: No cyanosis, clubbing, or edema. NEUROLOGIC: Extremely limited because the patient is paralyzed and sedated. No response to voice. Eyes closed. No response to visual threat. Pupils bilateral post-surgical but reactive from 3 to 2 mm, a little bit brisker on the right. No extraocular movements. No corneal reflexes. No gag. Flaccid extremities. No movements to pain. No reflexes obtainable. IMPRESSION: Anoxic encephalopathy status post cardiopulmonary arrest. Currently, the patient is un lay hypothermia protocol and is sedated and paralyzed, so examination is completely worthless. We w ill reexamine the patient after he is warmed up. I think it is reasonable to obtain EEG after he is warmed up. Thank you very much for this interesting consultation. Dictated By: VITA MALDONADO/KEYSHA Conf#: [id number] DID#: [id number]
[2016-12-28] MEDS: NORepinephrine 8MG/250 ML (PMX 250 ML IV SCH (05:21)
[2016-12-28 05:41] LABS: AADO2 Arterial 254.1 mmHg (7.0-24.0); Allen Test ACCEPTAB; Arterial Base Excess -4.9 mmol/L (-3.0-3); Arterial COHb 0.3 % (0.0-3.0); Arterial Fraction of Oxyhgb 95.7 % (93.0-99.0); Arterial MetHb 0.4 % (0.0-1.5); Arterial Total Hemglobin 9.5 g/dl (12.0-18.0); Blood Gas Mean Airway Pressure 12; MODE VENT - AC
[2016-12-28] MEDS: PROPOFOL 100 ML IV SCH ×2 (05:44→21:27)
[2016-12-28 06:06] LABS: ADD SCAN DIFF NO
[2016-12-28 06:31] LABS: ABNORMAL IP MESSAGE 1; BASOPHILS % 0.1 % (0.0-2.0); HEMATOCRIT 28.8 % (42.0-52.0); HEMOGLOBIN 8.6 g/dl (14.0-18.0); LYMPHOCYTES # 0.9 10^3/ul (0.8-2.9); LYMPHOCYTES % 6.3 % (15.0-51.0); MEAN CORPUSCULAR HGB CONC 29.9 g/dl (32.0-37.0); MEAN CORPUSCULAR VOLUME 67.1 fl (82.0-101.0); MONOCYTE # 0.6 10^3/ul (0.3-0.9); MONOCYTES % 3.9 % (0.0-11.0); NEUTROPHILS % 89.4 % (39.0-77.0); NUCLEATED RED BLOOD CELLS% 0.1 /100WBC (0.0-0.0); PLATELET COUNT 213 10^3/UL (140-415); RED BLOOD COUNT 4.29 10^6/ul (4.70-6.10); RED CELL DISTRIBUTION WIDTH 22.5 % (11.5-14.5); WHITE BLOOD COUNT 14.5 10^3/ul (4.8-10.8)
[2016-12-28 07:03] LABS: MAGNESIUM 1.6 mg/dl (1.7-2.5); PHOSPHORUS 2.6 mg/dl (2.5-4.9)
[2016-12-28 07:04] LABS: CREATININE 0.76 mg/dl (0.61-1.24); POTASSIUM 3.4 mmol/L (3.5-5.1)
[2016-12-28 07:05] LABS: AMYLASE < 30 U/L (11-123); MAGNESIUM 1.6 mg/dl (1.7-2.5); PHOSPHORUS 2.7 mg/dl (2.5-4.9)
[2016-12-28 07:15] LABS: INR 1.31; PROTIME 16.4 Sec (12.2-14.2); PT RATIO 1.3
--- NOTE | 2016-12-28 07:32 | PQ ---
Date/Time of Note Date/Time of Note DATE: 12/28/16 TIME: 07:24 Physician Query Documentation Clarification Dear Dr. Scott, Documentation in the medical record indicates this patient has been diagnosed as having Myocardial Infarction (AK). with the following clinical indicators: Troponin = 10.3--->13 ECG done yesterday at 1508 demonstrated sinus tachycardia at 105 bpm, inferior ST depressions, ST depressions seen in V3 through V5 Based on your medical judgment, can you further clarify which, if any, of the following conditions are present? ( ) Initial Non-ST elevation (NSTEMI) myocardial infarction ( ) Initial ST elevation (STEMI) AK involving ( specify coronary artery) ( ) Unable to determine ( ) Others ___see progress note Please provide your response by clicking edit document, making your choice ( x ), click ok/save and finally click sign. You may also document your response on your progress notes. Thank you for your time. Sabas Varner, RN, BSN, CCS, CCDS Clinical Ripper Operator Health Information Management, CD[employer] and Coding Services [phone] Room # 1525 - [address]~ [id number] SABAS VARNER Dec 28, 2016 07:32 Alan Scott DO Dec 28, 2016 15:07
[2016-12-28] MEDS: FAMOTIDINE 20 MG INJ IV SCH ×2 (08:34→20:36)
[2016-12-28] MEDS: ASPIRIN 81 MG TAB NGT SCH (08:34)
[2016-12-28] MEDS: CEFEPIME 2GM/50 ML (PMX) 50 ML IVPB SCH ×2 (09:29→20:49)
--- NOTE | 2016-12-28 09:33 | RADRPT ---
Vent Rate: 67 bpm RR Interval: 0 msec MA Interval: 130 msec QRS Duration: 92 msec QT Interval: 536 msec QTC Interval: 566 msec P-R-T [place]: 70 - 53 - 0 degrees Normal sinus rhythm Low voltage QRS ST amp; T wave abnormality, consider anterolateral ischemia Prolonged QT Abnormal ECG Electronically Signed By: Cheo Mancia [id number]
--- NOTE | 2016-12-28 09:33 | RADRPT ---
Vent Rate: 71 bpm RR Interval: 0 msec NV Interval: 134 msec QRS Duration: 80 msec QT Interval: 512 msec QTC Interval: 556 msec P-R-T [place]: 62 - 44 - 156 degrees Normal sinus rhythm Low voltage QRS ST amp; T wave abnormality, consider anterolateral ischemia Prolonged QT Abnormal ECG Electronically Signed By: Cheo Mancia [id number]
--- NOTE | 2016-12-28 10:28 | CONS ---
Date/Time of Note Date/Time of Note DATE: 12/28/16 TIME: 10:25 Consult Date/Type/Reason Admit Date/Time Dec 26, 2016 at 21:06 Initial Consult Date Type of Consultation: pulmonary ICU Subjective Patient remains intubated sedated and paralyzed mechanical ventilation. Continues hypothermia protocol currently in rewarming process. Objective Vital Signs Date Time Temp Pulse Resp B/P Pulse Ox O2 Delivery O2 Flow Rate FiO2 12/28/16 10:00 95.5 79 22 122/70 100 Mechanical Ventilator 12/28/16 09:00 50 Intake and Output 12/27/16 12/27/16 12/28/16 15:00 23:00 07:00 Intake Total 2216.615 ml 1491.761 ml Output Total 343 ml 605 ml Balance 1873.615 ml 886.761 ml Exam PHYSICAL EXAMINATION: GENERAL: Elderly gentleman, intubated, on mechanical ventilation. Appears comfortable at rest. Currently sedated, paralyzed, on hypothermia protocol. VITAL SIGNS: As above NECK: Supple. No JVD or lymphadenopathy. CARDIAC EXAM: S1, S2. No added sounds or murmurs. CHEST: Diminished air entry bilaterally. ABDOMEN: Soft, nontender. No guarding or rebound. EXTREMITIES: No cyanosis, clubbing or edema. NEUROLOGIC: Unable to assess. Results/Medications Result Diagram: 12/28/16 0445 12/28/16 0445 Results 24 hrs Laboratory Tests Test 12/27/16 10:32 12/27/16 11:06 12/27/16 12:00 12/27/16 12:04 White Blood Count 18.9 H Red Blood Count 4.83 Hemoglobin 9.5 L Hematocrit 34.5 L Mean Corpuscular Volume 71.4 L Mean Corpuscular Hemoglobin 19.7 L Mean Corpuscular Hemoglobin Concent 27.5 L Red Cell Distribution Width 58.4 #H Platelet Count 340 Mean Platelet Volume Neutrophils % 88.0 H Lymphocytes % 4.3 L Monocytes % 7.3 Eosinophils % 0.0 Basophils % 0.1 Nucleated Red Blood Cells % 0.2 H Neutrophils # 16.7 H Lymphocytes # 0.8 Monocytes # 1.4 H Eosinophils # 0.0 Basophils # 0.0 Nucleated Red Blood Cells # 0.0 Prothrombin Time 15.0 H Prothrombin Time Ratio 1.2 INR International Normalized Ratio 1.17 Activated Partial Thromboplast Time 28.6 Sodium Level 139 Potassium Level 3.7 Chloride Level 111 H Carbon Dioxide Level 17 L Anion Gap 15 Blood Urea Nitrogen 27 H Creatinine 0.91 Glucose Level 172 Calcium Level 6.9 L Troponin I 5.940 *H Bedside Glucose 163 141 Blood Gas Specimen Source Blood arterial Arterial Blood Date Drawn 12/27/2016 12:20:00 PM Arterial Blood pH (Temp corrected) 7.203 *L Arterial Blood pCO2 (Temp correct) 34.9 L Arterial Blood pO2 (Temp corrected) 84.2 Arterial Blood HCO3 14.1 L Arterial Blood Base Excess -13.9 L Arterial Blood Oxygen Saturation 96.5 Harinder Test ACCEPTAB Arterial Blood Gas Puncture Site Right Radial Arterial Blood Carboxyhemoglobin 0.3 Arterial Blood Methemoglobin 0.4 Blood Gas A-a O2 Differential 310.6 H Oxyhemoglobin Percent 95.8 Total Hemoglobin 10.9 L Blood Gas Temperature 33.2 Blood Gas Respiration Rate 16.0 Blood Gas Actual Respiration Rate 16 Blood Gas Modality VENT - AC FiO2 60.0 Blood Gas Tidal Volume 550.0 Blood Gas Critical Value Read Back DR GALLARDO Blood Gas Notified Whom JLD Blood Gas Notified Time 12/27/2016 12:37:00 PM Test 12/27/16 12:57 12/27/16 14:03 12/27/16 15:10 12/27/16 17:08 Bedside Glucose 149 162 178 163 Test 12/27/16 18:00 12/27/16 18:15 12/27/16 18:45 12/27/16 19:30 Blood Gas Specimen Source Blood arterial Arterial Blood Date Drawn 12/27/2016 6:14:15 PM Arterial Blood pH (Temp corrected) 7.335 L Arterial Blood pCO2 (Temp correct) 27.9 L Arterial Blood pO2 (Temp corrected) 74.2 L Arterial Blood HCO3 15.3 L Arterial Blood Base Excess -10.5 L Arterial Blood Oxygen Saturation 97.0 Hrainder Test ACCEPTAB Arterial Blood Gas Puncture Site Right Radial Arterial Blood Carboxyhemoglobin 0.3 Arterial Blood Methemoglobin 0.4 Blood Gas A-a O2 Differential 255.7 H Oxyhemoglobin Percent 96.3 Total Hemoglobin 10.9 L Blood Gas Temperature 32.9 Blood Gas Respiration Rate 24.0 Blood Gas Actual Respiration Rate 24 Blood Gas Modality VENT - AC FiO2 50.0 Blood Gas Tidal Volume 550.0 Blood Gas Low PEEP Setting 5.0 Blood Gas Critical Value Read Back SWATHI S CHAY Blood Gas Notified Whom AT Blood Gas Notified Time 12/27/2016 6:28:34 PM Bedside Glucose 173 158 White Blood Count 15.3 H Red Blood Count 4.62 L Hemoglobin 9.4 L Hematocrit 32.2 L Mean Corpuscular Volume 69.7 L Mean Corpuscular Hemoglobin 20.3 L Mean Corpuscular Hemoglobin Concent 29.2 L Red Cell Distribution Width 22.5 #H Platelet Count 256 # Mean Platelet Volume Neutrophils % 62.0 Band Neutrophils % 23.0 H Lymphocytes % 5.0 L Reactive Lymphocytes % 1.0 Monocytes % 5.0 Metamyelocytes % 4.0 H Neutrophils # 9.5 H Lymphocytes # 0.8 Monocytes # 0.8 Metamyelocytes # 0.6 Platelet Estimate PLT APPEAR ADEQUATE Giant Platelets OCCASIONAL Anisocytosis 1+ Macrocytosis OCCASIONAL Prothrombin Time 16.8 H Prothrombin Time Ratio 1.3 INR International Normalized Ratio 1.36 Fibrinogen 383.0 # Sodium Level 137 Potassium Level 3.4 L Chloride Level 109 Carbon Dioxide Level 17 L Anion Gap 14 Blood Urea Nitrogen 25 H Creatinine 0.89 Glucose Level 170 Lactic Acid Level 4.1 *H Calcium Level 7.0 L Phosphorus Level 3.3 Magnesium Level 1.7 Troponin I 4.300 *H Amylase Level < 30 Lipase 108 Test 12/27/16 20:07 12/27/16 21:06 12/27/16 22:02 12/27/16 23:01 Bedside Glucose 150 145 141 145 Test 12/28/16 00:00 12/28/16 00:10 12/28/16 00:29 12/28/16 02:03 Blood Gas Specimen Source Blood arterial Arterial Blood Date Drawn 12/28/2016 12:25:50 AM Arterial Blood pH (Temp corrected) 7.450 Arterial Blood pCO2 (Temp correct) 21.3 L Arterial Blood pO2 (Temp corrected) 80.6 Arterial Blood HCO3 15.1 L Arterial Blood Base Excess -8.6 L Arterial Blood Oxygen Saturation 97.4 Harinder Test ACCEPTAB Arterial Blood Gas Puncture Site Right Radial Arterial Blood Carboxyhemoglobin 0.3 Arterial Blood Methemoglobin 0.5 Blood Gas A-a O2 Differential 256.7 H Oxyhemoglobin Percent 96.6 Total Hemoglobin 9.5 L Blood Gas Temperature 32.9 Blood Gas Respiration Rate 24.0 Blood Gas Actual Respiration Rate 24 Blood Gas Modality VENT - AC FiO2 50.0 Blood Gas Tidal Volume 550.0 Blood Gas Low PEEP Setting 5.0 Blood Gas Inspiratory Pressure 28.0 Blood Gas Critical Value Read Back S AYANA ECHEVARRIA Blood Gas Notified Whom UP Blood Gas Notified Time 12/28/2016 12:36:05 AM White Blood Count 13.2 H Red Blood Count 4.00 L Hemoglobin 8.2 L Hematocrit 27.5 L Mean Corpuscular Volume 68.8 L Mean Corpuscular Hemoglobin 20.5 L Mean Corpuscular Hemoglobin Concent 29.8 L Red Cell Distribution Width 22.1 H Platelet Count 199 # Mean Platelet Volume Neutrophils % 65.0 Band Neutrophils % 20.0 H Lymphocytes % 7.0 L Monocytes % 6.0 Metamyelocytes % 2.0 H Neutrophils # 8.6 H Lymphocytes # 0.9 Monocytes # 0.8 Metamyelocytes # 0.3 Platelet Estimate PLT APPEAR ADEQUATE Prothrombin Time 17.3 H Prothrombin Time Ratio 1.4 INR International Normalized Ratio 1.41 Activated Partial Thromboplast Time > 180.0 *H Fibrinogen 320.0 # Sodium Level 134 L Potassium Level 3.2 L Chloride Level 114 H Carbon Dioxide Level 18 L Anion Gap 5 #L Blood Urea Nitrogen 21 H Creatinine 0.75 Glucose Level 137 Lactic Acid Level 3.1 H Calcium Level 6.6 L Phosphorus Level 2.5 Magnesium Level 1.6 L Troponin I 3.540 *H Amylase Level < 30 Lipase 80 Bedside Glucose 127 178 Test 12/28/16 03:42 12/28/16 04:04 12/28/16 04:45 12/28/16 05:33 Activated Partial Thromboplast Time 98.1 *H 47.0 H Bedside Glucose 160 158 White Blood Count 14.5 H Red Blood Count 4.29 L Hemoglobin 8.6 L Hematocrit 28.8 L Mean Corpuscular Volume 67.1 L Mean Corpuscular Hemoglobin 20.0 L Mean Corpuscular Hemoglobin Concent 29.9 L Red Cell Distribution Width 22.5 H Platelet Count 213 Mean Platelet Volume Neutrophils % 89.4 H Lymphocytes % 6.3 L Monocytes % 3.9 Eosinophils % 0.0 Basophils % 0.1 Nucleated Red Blood Cells % 0.1 H Neutrophils # 13.0 H Lymphocytes # 0.9 Monocytes # 0.6 Eosinophils # 0.0 Basophils # 0.0 Nucleated Red Blood Cells # 0.0 Prothrombin Time 16.4 H Prothrombin Time Ratio 1.3 INR International Normalized Ratio 1.31 Fibrinogen 410.0 # Sodium Level 136 Potassium Level 3.4 L Chloride Level 113 H Carbon Dioxide Level 18 L Anion Gap 8 Blood Urea Nitrogen 19 Creatinine 0.76 Glucose Level 151 Calcium Level 7.0 L Phosphorus Level 2.6 Magnesium Level 1.6 L Troponin I 3.350 *H Amylase Level < 30 Lipase 27 Test 12/28/16 06:00 12/28/16 08:03 12/28/16 09:20 12/28/16 10:00 Blood Gas Specimen Source Blood arterial Arterial Blood Date Drawn 12/28/2016 5:29:20 AM Arterial Blood pH (Temp corrected) 7.441 Arterial Blood pCO2 (Temp correct) 27.9 L Arterial Blood pO2 (Temp corrected) 74.1 L Arterial Blood HCO3 19.0 L Arterial Blood Base Excess -4.9 L Arterial Blood Oxygen Saturation 96.4 Harinder Test ACCEPTAB Arterial Blood Gas Puncture Site Right Radial Arterial Blood Carboxyhemoglobin 0.3 Arterial Blood Methemoglobin 0.4 Blood Gas A-a O2 Differential 254.1 H Oxyhemoglobin Percent 95.7 Total Hemoglobin 9.5 L Blood Gas Temperature 34.5 Blood Gas Respiration Rate 24.0 Blood Gas Actual Respiration Rate 24.0 Blood Gas Modality VENT - AC FiO2 50.0 Blood Gas Tidal Volume 550.0 Blood Gas Mean Airway Pressure 12 Blood Gas Low PEEP Setting 5.0 Blood Gas Inspiratory Pressure 28.0 Blood Gas Notified Whom MAURI OWEN Blood Gas Notified Time 12/28/2016 5:40:47 AM Bedside Glucose 144 117 Vancomycin Level Trough 9.5 L Medications Current Medications Famotidine 20 mg 20 mg Q12 IV Last administered on 12/28/16 08:34; Admin Dose 20 MG; Start 12/26/16 at 23:00 Levofloxacin/ Dextrose 150 ml @ 100 mls/hr Q24H IVPB Last administered on 12/28 00:34; Admin Dose 100 MLS/HR; Start 12/27/16 at 23:00 Cefepime HCl (Maxipime 2gm/50 ml (Pmx)) 50 ml @ 100 mls/hr Q12 IVPB Last administered on 12/28/16 09:29; Admin Dose 100 MLS/HR; Start 12/27/16 at 09:00 Dextrose (D50w Syringe) 25 ml Q15M PRN IV Till BS 80 mg/dL or above x2; Start 12/27/16 at 04:00 Diagnostic Test (Pha) (Accu-Chek) 1 ea Q1H XX Last administered on 12/28/16 10 :01; Admin Dose 1 EA; Start 12/27/16 at 04:00 Dextrose 50 ml 50 ml Q15M PRN IV Till BS 80 mg/dL or above x2; Start 12/27/16 at 04:00 Vancomycin HCl 250 ml @ 125 mls/hr Q12H IVPB Last administered on 12/27/16 21 :19; Admin Dose 125 MLS/HR; Start 12/27/16 at 09:30 Sodium Bicarbonate/ Dextrose/Sodium Chloride (Na Bicarb/D5-1/ 2ns) 1,100 ml @ 100 mls/hr Q11H IV Last administered on 12/27/16 23:39; Admin Dose 100 MLS/HR ; Start 12/27/16 at 12:00 Aspirin (Aspirin) 81 mg DAILY NGT Last administered on 12/28/16 08:34; Admin Dose 81 MG; Start 12/27/16 at 13:30 Atorvastatin Calcium 80 mg 80 mg HS NGT Last administered on 12/27/16 20:43; Admin Dose 80 MG; Start 12/27/16 at 21:00 Vecuronium [place]/Dextrose (Norcuron/D5W) 100 ml @ 0 mls/hr TITRATE IV Last administered on 12/27/16 21:54; Admin Dose 0.77 MLS/HR; Start 12/27/16 at 20:00 Acetaminophen (Tylenol Liquid) 500 mg Q6H NGT Last administered on 12/28/16 05 :29; Admin Dose 500 MG; Start 12/28/16 at 00:00; Stop 12/29/16 at 00:00 Eye Lubricant (Akwa Oint) 1 applic Q6H BOTH EYES Last administered on 05:29; Admin Dose 1 APPLIC; Start 12/28/16 at 00:00 Eye Lubricant (Artificial Tears Oph) 2 drop Q6H BOTH EYES Last administered on 12/28/16 05:29; Admin Dose 2 DROP; Start 12/28/16 at 00:00 Assessment/Plan Chief Complaint/Hosp Course IMPRESSION 1. Cardiopulmonary arrest. 2. No initial coronary intervention at present may require revascularization once neurological status established 3. Possible underlying coronary artery disease. 4. Possible anoxic brain injury. 5. Metabolic acidosis. Plan 1. Continue mechanical ventilation 2. Echocardiogram and cardiology recommendations 3. Continued hypothermia protocol. Currently rewarming process 4. Cardiology recommendations. 5. Intravenous bicarbonate, correct metabolic acidosis. 6. DVT and GI prophylaxis Disposition Continue ICU care Critical care time 40 minutes Problems: DOMENIC VOSS MD, [facility] Dec 28, 2016 10:28
[2016-12-28] MEDS: SODIUM BICARBONATE (IV ADD) 100 MEQ in DEXTROSE 5%-0.45% NACL 1,000 ML IV SCH ×2 (10:42→23:05)
[2016-12-28] MEDS: VANCOMYCIN 1 GM in NS 250 ML IVPB SCH (10:54)
--- NOTE | 2016-12-28 10:55 | PN ---
Date/Time of Note Date/Time of Note DATE: 12/28/16 TIME: 10:49 Assessment/Plan VTE Prophylaxis VTE Prophylaxis Intervention: heparin Lines/Catheters IV Catheter Type (from [facility]): Central Line Central line still needed: Yes Urinary Cath still in place: Yes Reason Cath still needed: urinary retention Assessment/Plan Chief Complaint/Hosp Course ASSESSMENT AND PLAN: 71-year-old male status post cardiac arrest, now in septic shock, intubated and sedated, was on hypothermia protocol - now in rewarming phase. 1. Status post cardiac arrest. Follow up cardiology recommendations. Continue ICU level of care. Continue rewarming phase of hypothermia protocol. Per cardiology recommendations, should continue to trend troponins, IV heparin as well, aspirin and statin therapy, holding JUANITA inhibitor and beta dante, given hypotension. Continue pressor support as well. Continue insulin drip as well. Neuro consult as well, EEG ordered as well - pending - to help determine extent of possible anoxic brain injury. 2. Respiratory distress. Again, patient intubated. Follow up pulmonary recommendations, including mechanical ventilation - trying to wean down as tolerated. Follow up pulmonary recommendations. Patient recommended for IV bicarbonate, given metabolic acidosis. Continue broad spectrum antibiotics as well. 3. For elevated troponins. Again, see #1. Follow cardiology recommendations, aspirin and heparin drip, trend troponins. 4. Hypertension. Again, because the patient is hypotensive presently, holding all blood pressure medicines for now, on pressor support, try to wean down as tolerated. 5. Deep venous thrombosis prophylaxis. Heparin 6. Gastrointestinal prophylaxis. Famotidine. Family was explained yesterday and today at bedside, updated on plan of care and results thus far. Will also consider palliative consult as well. Critical care time spent on this patient's care today was 45 minutes. Problems: Subjective 24 Hr Interval Summary Free Text/Dictation Pt still intubated, sedated, on heparin IV, insulin IV, pressor x 1. Exam/Review of Systems Vital Signs Vitals Vital Signs Date Time Temp Pulse Resp B/P Pulse Ox O2 Delivery O2 Flow Rate FiO2 12/28/16 10:00 95.5 79 22 122/70 100 Mechanical Ventilator 12/28/16 09:00 50 Intake and Output 12/27/16 12/27/16 12/28/16 15:00 23:00 07:00 Intake Total 2216.615 ml 1491.761 ml Output Total 343 ml 605 ml Balance 1873.615 ml 886.761 ml Exam GENERAL: The patient is lying in bed, intubated, sedated. HEENT: Unable to fully assess. NECK: Supple. No thyromegaly. LUNGS: Distant breath sounds bilaterally. CARDIOVASCULAR: S1, S2 heard. No rubs or gallops. ABDOMEN: Soft, nontender, nondistended. Normal bowel sounds. No rebound or guarding. MUSCULOSKELETAL: No lower extremity edema bilaterally. NEUROLOGIC: Unable to fully assess. Results Result Diagram: 12/28/16 0445 12/28/16 0445 Results 24 hrs Laboratory Tests Test 12/27/16 11:06 12/27/16 12:00 12/27/16 12:04 12/27/16 12:57 Bedside Glucose 163 141 149 Blood Gas Specimen Source Blood arterial Arterial Blood Date Drawn 12/27/2016 12:20:00 PM Arterial Blood pH (Temp corrected) 7.203 *L Arterial Blood pCO2 (Temp correct) 34.9 L Arterial Blood pO2 (Temp corrected) 84.2 Arterial Blood HCO3 14.1 L Arterial Blood Base Excess -13.9 L Arterial Blood Oxygen Saturation 96.5 Harinder Test ACCEPTAB Arterial Blood Gas Puncture Site Right Radial Arterial Blood Carboxyhemoglobin 0.3 Arterial Blood Methemoglobin 0.4 Blood Gas A-a O2 Differential 310.6 H Oxyhemoglobin Percent 95.8 Total Hemoglobin 10.9 L Blood Gas Temperature 33.2 Blood Gas Respiration Rate 16.0 Blood Gas Actual Respiration Rate 16 Blood Gas Modality VENT - AC FiO2 60.0 Blood Gas Tidal Volume 550.0 Blood Gas Critical Value Read Back DR GALLARDO Blood Gas Notified Whom JLD Blood Gas Notified Time 12/27/2016 12:37:00 PM Test 12/27/16 14:03 12/27/16 15:10 12/27/16 17:08 12/27/16 18:00 Bedside Glucose 162 178 163 Blood Gas Specimen Source Blood arterial Arterial Blood Date Drawn 12/27/2016 6:14:15 PM Arterial Blood pH (Temp corrected) 7.335 L Arterial Blood pCO2 (Temp correct) 27.9 L Arterial Blood pO2 (Temp corrected) 74.2 L Arterial Blood HCO3 15.3 L Arterial Blood Base Excess -10.5 L Arterial Blood Oxygen Saturation 97.0 Harinder Test ACCEPTAB Arterial Blood Gas Puncture Site Right Radial Arterial Blood Carboxyhemoglobin 0.3 Arterial Blood Methemoglobin 0.4 Blood Gas A-a O2 Differential 255.7 H Oxyhemoglobin Percent 96.3 Total Hemoglobin 10.9 L Blood Gas Temperature 32.9 Blood Gas Respiration Rate 24.0 Blood Gas Actual Respiration Rate 24 Blood Gas Modality VENT - AC FiO2 50.0 Blood Gas Tidal Volume 550.0 Blood Gas Low PEEP Setting 5.0 Blood Gas Critical Value Read Back RN S TAMPLE Blood Gas Notified Whom AT Blood Gas Notified Time 12/27/2016 6:28:34 PM Test 12/27/16 18:15 12/27/16 18:45 12/27/16 19:30 12/27/16 20:07 Bedside Glucose 173 158 150 White Blood Count 15.3 H Red Blood Count 4.62 L Hemoglobin 9.4 L Hematocrit 32.2 L Mean Corpuscular Volume 69.7 L Mean Corpuscular Hemoglobin 20.3 L Mean Corpuscular Hemoglobin Concent 29.2 L Red Cell Distribution Width 22.5 #H Platelet Count 256 # Mean Platelet Volume Neutrophils % 62.0 Band Neutrophils % 23.0 H Lymphocytes % 5.0 L Reactive Lymphocytes % 1.0 Monocytes % 5.0 Metamyelocytes % 4.0 H Neutrophils # 9.5 H Lymphocytes # 0.8 Monocytes # 0.8 Metamyelocytes # 0.6 Platelet Estimate PLT APPEAR ADEQUATE Giant Platelets OCCASIONAL Anisocytosis 1+ Macrocytosis OCCASIONAL Prothrombin Time 16.8 H Prothrombin Time Ratio 1.3 INR International Normalized Ratio 1.36 Fibrinogen 383.0 # Sodium Level 137 Potassium Level 3.4 L Chloride Level 109 Carbon Dioxide Level 17 L Anion Gap 14 Blood Urea Nitrogen 25 H Creatinine 0.89 Glucose Level 170 Lactic Acid Level 4.1 *H Calcium Level 7.0 L Phosphorus Level 3.3 Magnesium Level 1.7 Troponin I 4.300 *H Amylase Level < 30 Lipase 108 Test 12/27/16 21:06 12/27/16 22:02 12/27/16 23:01 12/28/16 00:00 Bedside Glucose 145 141 145 Blood Gas Specimen Source Blood arterial Arterial Blood Date Drawn 12/28/2016 12:25:50 AM Arterial Blood pH (Temp corrected) 7.450 Arterial Blood pCO2 (Temp correct) 21.3 L Arterial Blood pO2 (Temp corrected) 80.6 Arterial Blood HCO3 15.1 L Arterial Blood Base Excess -8.6 L Arterial Blood Oxygen Saturation 97.4 Harinder Test ACCEPTAB Arterial Blood Gas Puncture Site Right Radial Arterial Blood Carboxyhemoglobin 0.3 Arterial Blood Methemoglobin 0.5 Blood Gas A-a O2 Differential 256.7 H Oxyhemoglobin Percent 96.6 Total Hemoglobin 9.5 L Blood Gas Temperature 32.9 Blood Gas Respiration Rate 24.0 Blood Gas Actual Respiration Rate 24 Blood Gas Modality VENT - AC FiO2 50.0 Blood Gas Tidal Volume 550.0 Blood Gas Low PEEP Setting 5.0 Blood Gas Inspiratory Pressure 28.0 Blood Gas Critical Value Read Back S AYANA ECHEVARRIA Blood Gas Notified Whom UP Blood Gas Notified Time 12/28/2016 12:36:05 AM Test 12/28/16 00:10 12/28/16 00:29 12/28/16 02:03 12/28/16 03:42 White Blood Count 13.2 H Red Blood Count 4.00 L Hemoglobin 8.2 L Hematocrit 27.5 L Mean Corpuscular Volume 68.8 L Mean Corpuscular Hemoglobin 20.5 L Mean Corpuscular Hemoglobin Concent 29.8 L Red Cell Distribution Width 22.1 H Platelet Count 199 # Mean Platelet Volume Neutrophils % 65.0 Band Neutrophils % 20.0 H Lymphocytes % 7.0 L Monocytes % 6.0 Metamyelocytes % 2.0 H Neutrophils # 8.6 H Lymphocytes # 0.9 Monocytes # 0.8 Metamyelocytes # 0.3 Platelet Estimate PLT APPEAR ADEQUATE Prothrombin Time 17.3 H Prothrombin Time Ratio 1.4 INR International Normalized Ratio 1.41 Activated Partial Thromboplast Time > 180.0 *H 98.1 *H Fibrinogen 320.0 # Sodium Level 134 L Potassium Level 3.2 L Chloride Level 114 H Carbon Dioxide Level 18 L Anion Gap 5 #L Blood Urea Nitrogen 21 H Creatinine 0.75 Glucose Level 137 Lactic Acid Level 3.1 H Calcium Level 6.6 L Phosphorus Level 2.5 Magnesium Level 1.6 L Troponin I 3.540 *H Amylase Level < 30 Lipase 80 Bedside Glucose 127 178 Test 12/28/16 04:04 12/28/16 04:45 12/28/16 05:33 12/28/16 06:00 Bedside Glucose 160 158 White Blood Count 14.5 H Red Blood Count 4.29 L Hemoglobin 8.6 L Hematocrit 28.8 L Mean Corpuscular Volume 67.1 L Mean Corpuscular Hemoglobin 20.0 L Mean Corpuscular Hemoglobin Concent 29.9 L Red Cell Distribution Width 22.5 H Platelet Count 213 Mean Platelet Volume Neutrophils % 89.4 H Lymphocytes % 6.3 L Monocytes % 3.9 Eosinophils % 0.0 Basophils % 0.1 Nucleated Red Blood Cells % 0.1 H Neutrophils # 13.0 H Lymphocytes # 0.9 Monocytes # 0.6 Eosinophils # 0.0 Basophils # 0.0 Nucleated Red Blood Cells # 0.0 Prothrombin Time 16.4 H Prothrombin Time Ratio 1.3 INR International Normalized Ratio 1.31 Activated Partial Thromboplast Time 47.0 H Fibrinogen 410.0 # Sodium Level 136 Potassium Level 3.4 L Chloride Level 113 H Carbon Dioxide Level 18 L Anion Gap 8 Blood Urea Nitrogen 19 Creatinine 0.76 Glucose Level 151 Calcium Level 7.0 L Phosphorus Level 2.6 Magnesium Level 1.6 L Troponin I 3.350 *H Amylase Level < 30 Lipase 27 Blood Gas Specimen Source Blood arterial Arterial Blood Date Drawn 12/28/2016 5:29:20 AM Arterial Blood pH (Temp corrected) 7.441 Arterial Blood pCO2 (Temp correct) 27.9 L Arterial Blood pO2 (Temp corrected) 74.1 L Arterial Blood HCO3 19.0 L Arterial Blood Base Excess -4.9 L Arterial Blood Oxygen Saturation 96.4 Harinder Test ACCEPTAB Arterial Blood Gas Puncture Site Right Radial Arterial Blood Carboxyhemoglobin 0.3 Arterial Blood Methemoglobin 0.4 Blood Gas A-a O2 Differential 254.1 H Oxyhemoglobin Percent 95.7 Total Hemoglobin 9.5 L Blood Gas Temperature 34.5 Blood Gas Respiration Rate 24.0 Blood Gas Actual Respiration Rate 24.0 Blood Gas Modality VENT - AC FiO2 50.0 Blood Gas Tidal Volume 550.0 Blood Gas Mean Airway Pressure 12 Blood Gas Low PEEP Setting 5.0 Blood Gas Inspiratory Pressure 28.0 Blood Gas Notified Whom [employer] Blood Gas Notified Time 12/28/2016 5:40:47 AM Test 12/28/16 08:03 12/28/16 09:20 12/28/16 10:00 Bedside Glucose 144 117 Vancomycin Level Trough 9.5 L Medications Medications Current Medications Famotidine 20 mg 20 mg Q12 IV Last administered on 12/28/16t 08:34; Admin Dose 20 MG; Start 12/26/16 at 23:00 Levofloxacin/ Dextrose 150 ml @ 100 mls/hr Q24H IVPB Last administered on 12/28 00:34; Admin Dose 100 MLS/HR; Start 12/27/16 at 23:00 Cefepime HCl (Maxipime 2gm/50 ml (Pmx)) 50 ml @ 100 mls/hr Q12 IVPB Last administered on 12/28/16 09:29; Admin Dose 100 MLS/HR; Start 12/27/16 at 09:00 Dextrose (D50w Syringe) 25 ml Q15M PRN IV Till BS 80 mg/dL or above x2; Start 12/27/16 at 04:00 Diagnostic Test (Pha) (Accu-Chek) 1 ea Q1H XX Last administered on 12/28/16 10 :01; Admin Dose 1 EA; Start 12/27/16 at 04:00 Dextrose 50 ml 50 ml Q15M PRN IV Till BS 80 mg/dL or above x2; Start 12/27/16 at 04:00 Vancomycin HCl 250 ml @ 125 mls/hr Q12H IVPB Last administered on 12/27/16 21 :19; Admin Dose 125 MLS/HR; Start 12/27/16 at 09:30 Sodium Bicarbonate/ Dextrose/Sodium Chloride (Na Bicarb/D5-1/ 2ns) 1,100 ml @ 100 mls/hr Q11H IV Last administered on 12/28/16 10:42; Admin Dose 100 MLS/HR ; Start 12/27/16 at 12:00 Aspirin (Aspirin) 81 mg DAILY NGT Last administered on 12/28/16 08:34; Admin Dose 81 MG; Start 12/27/16 at 13:30 Atorvastatin Calcium 80 mg 80 mg HS NGT Last administered on 12/27/16 20:43; Admin Dose 80 MG; Start 12/27/16 at 21:00 Vecuronium [employer]/Dextrose (Norcuron/D5W) 100 ml @ 0 mls/hr TITRATE IV Last administered on 12/27/16 21:54; Admin Dose 0.77 MLS/HR; Start 12/27/16 at 20:00 Acetaminophen (Tylenol Liquid) 500 mg Q6H NGT Last administered on 12/28/16 05 :29; Admin Dose 500 MG; Start 12/28/16 at 00:00; Stop 12/29/16 at 00:00 Eye Lubricant (Akwa Oint) 1 applic Q6H BOTH EYES Last administered on 05:29; Admin Dose 1 APPLIC; Start 12/28/16 at 00:00 Eye Lubricant (Artificial Tears Oph) 2 drop Q6H BOTH EYES Last administered on 12/28/16 05:29; Admin Dose 2 DROP; Start 12/28/16 at 00:00 Procedures Procedures 2D ECHO (12/27): Conclusions 1. Normal left ventricular cavity size. Normal left ventricular wall thickness. Moderate left ventricular systolic dysfunction. Ejection fraction is visually estimated at 40 %. Tissue Doppler/Mitral Doppler indices are consistent with impaired relaxation (Stage I diastolic dysfunction). Multiple wall motion abnormalities. 2. Normal right ventricular size. Normal right ventricular systolic function. 3. The left atrium is normal in size. 4. The right atrium is normal in size. 5. Mild mitral valve regurgitation. 6. No significant valvular stenosis or regurgitation seen of remaining visualized valves. 7. Normal pericardium with no significant pericardial effusion. GENNA DEWEY Dec 28, 2016 10:55
--- NOTE | 2016-12-28 11:49 | CONS ---
Date/Time of Note Date/Time of Note DATE: 12/28/16 TIME: 11:39 Assessment/Plan Assessment/Plan Additional Assessment/Plan Cardiopulmonary arrest Non-ST elevation myocardial infarction Cardiomyopathy with ejection fraction 40% Respiratory failure Acute blood loss anemia status post blood transfusion -Echocardiogram reviewed with evidence of apical dyskinesis. Differential includes stress-induced cardiomyopathy versus coronary artery disease as etiology. Troponins have continued to trend down. Would continue aspirin and statin therapy, no beta-dante or JUANITA inhibitor given hypotension. Continue IV heparin as long as hemoglobin permits. Watching globin closely and if needed , would transfuse additional units. Patient undergoing rewarming right now. Plan of care was discussed with at bedside. Consultation Date/Type/Reason Admit Date/Time Dec 26, 2016 at 21:06 Initial Consult Date Type of Consultation: cv 24 HR Interval Summary Free Text/Dictation Patient seen and examined. Remains sedated, intubated hypothermia protocol. at bedside Exam/Review of Systems Vital Signs Vitals Vital Signs Date Time Temp Pulse Resp B/P Pulse Ox O2 Delivery O2 Flow Rate FiO2 12/28/16 11:22 79 24 100 50 12/28/16 11:00 95.7 120/79 Mechanical Ventilator Intake and Output 12/27/16 12/27/16 12/28/16 15:00 23:00 07:00 Intake Total 2216.615 ml 1491.761 ml Output Total 343 ml 605 ml Balance 1873.615 ml 886.761 ml Exam Intubated and sedated and on paralytics, undergoing rewarming Head: normocephalic ENMT: intubated Respiratory: other (Coarse breath sounds bilaterally, no wheezing) Cardiovascular: other (S1-S2 heard), regular rate and rhythm Gastrointestinal: bowel sounds (Hypoactive), other (No grimacing with palpation ), soft Extremities: edema (Trace) Results Result Diagram: 12/28/16 0445 12/28/16 0445 Results 24 hrs Laboratory Tests Test 12/27/16 12:00 12/27/16 12:04 12/27/16 12:57 12/27/16 14:03 Blood Gas Specimen Source Blood arterial Arterial Blood Date Drawn 12/27/2016 12:20:00 PM Arterial Blood pH (Temp corrected) 7.203 *L Arterial Blood pCO2 (Temp correct) 34.9 L Arterial Blood pO2 (Temp corrected) 84.2 Arterial Blood HCO3 14.1 L Arterial Blood Base Excess -13.9 L Arterial Blood Oxygen Saturation 96.5 Harinder Test ACCEPTAB Arterial Blood Gas Puncture Site Right Radial Arterial Blood Carboxyhemoglobin 0.3 Arterial Blood Methemoglobin 0.4 Blood Gas A-a O2 Differential 310.6 H Oxyhemoglobin Percent 95.8 Total Hemoglobin 10.9 L Blood Gas Temperature 33.2 Blood Gas Respiration Rate 16.0 Blood Gas Actual Respiration Rate 16 Blood Gas Modality VENT - AC FiO2 60.0 Blood Gas Tidal Volume 550.0 Blood Gas Critical Value Read Back DR GALLARDO Blood Gas Notified Whom GENI Blood Gas Notified Time 12/27/2016 12:37:00 PM Bedside Glucose 141 149 162 Test 12/27/16 15:10 12/27/16 17:08 12/27/16 18:00 12/27/16 18:15 Bedside Glucose 178 163 173 Blood Gas Specimen Source Blood arterial Arterial Blood Date Drawn 12/27/2016 6:14:15 PM Arterial Blood pH (Temp corrected) 7.335 L Arterial Blood pCO2 (Temp correct) 27.9 L Arterial Blood pO2 (Temp corrected) 74.2 L Arterial Blood HCO3 15.3 L Arterial Blood Base Excess -10.5 L Arterial Blood Oxygen Saturation 97.0 Harinder Test ACCEPTAB Arterial Blood Gas Puncture Site Right Radial Arterial Blood Carboxyhemoglobin 0.3 Arterial Blood Methemoglobin 0.4 Blood Gas A-a O2 Differential 255.7 H Oxyhemoglobin Percent 96.3 Total Hemoglobin 10.9 L Blood Gas Temperature 32.9 Blood Gas Respiration Rate 24.0 Blood Gas Actual Respiration Rate 24 Blood Gas Modality VENT - AC FiO2 50.0 Blood Gas Tidal Volume 550.0 Blood Gas Low PEEP Setting 5.0 Blood Gas Critical Value Read Back SWATHI CARTWRIGHT Blood Gas Notified Whom AT Blood Gas Notified Time 12/27/2016 6:28:34 PM Test 12/27/16 18:45 12/27/16 19:30 12/27/16 20:07 12/27/16 21:06 White Blood Count 15.3 H Red Blood Count 4.62 L Hemoglobin 9.4 L Hematocrit 32.2 L Mean Corpuscular Volume 69.7 L Mean Corpuscular Hemoglobin 20.3 L Mean Corpuscular Hemoglobin Concent 29.2 L Red Cell Distribution Width 22.5 #H Platelet Count 256 # Mean Platelet Volume Neutrophils % 62.0 Band Neutrophils % 23.0 H Lymphocytes % 5.0 L Reactive Lymphocytes % 1.0 Monocytes % 5.0 Metamyelocytes % 4.0 H Neutrophils # 9.5 H Lymphocytes # 0.8 Monocytes # 0.8 Metamyelocytes # 0.6 Platelet Estimate PLT APPEAR ADEQUATE Giant Platelets OCCASIONAL Anisocytosis 1+ Macrocytosis OCCASIONAL Prothrombin Time 16.8 H Prothrombin Time Ratio 1.3 INR International Normalized Ratio 1.36 Fibrinogen 383.0 # Sodium Level 137 Potassium Level 3.4 L Chloride Level 109 Carbon Dioxide Level 17 L Anion Gap 14 Blood Urea Nitrogen 25 H Creatinine 0.89 Glucose Level 170 Lactic Acid Level 4.1 *H Calcium Level 7.0 L Phosphorus Level 3.3 Magnesium Level 1.7 Troponin I 4.300 *H Amylase Level < 30 Lipase 108 Bedside Glucose 158 150 145 Test 12/27/16 22:02 12/27/16 23:01 12/28/16 00:00 12/28/16 00:10 Bedside Glucose 141 145 Blood Gas Specimen Source Blood arterial Arterial Blood Date Drawn 12/28/2016 12:25:50 AM Arterial Blood pH (Temp corrected) 7.450 Arterial Blood pCO2 (Temp correct) 21.3 L Arterial Blood pO2 (Temp corrected) 80.6 Arterial Blood HCO3 15.1 L Arterial Blood Base Excess -8.6 L Arterial Blood Oxygen Saturation 97.4 Harinder Test ACCEPTAB Arterial Blood Gas Puncture Site Right Radial Arterial Blood Carboxyhemoglobin 0.3 Arterial Blood Methemoglobin 0.5 Blood Gas A-a O2 Differential 256.7 H Oxyhemoglobin Percent 96.6 Total Hemoglobin 9.5 L Blood Gas Temperature 32.9 Blood Gas Respiration Rate 24.0 Blood Gas Actual Respiration Rate 24 Blood Gas Modality VENT - AC FiO2 50.0 Blood Gas Tidal Volume 550.0 Blood Gas Low PEEP Setting 5.0 Blood Gas Inspiratory Pressure 28.0 Blood Gas Critical Value Read Back Diana PIÑA RN Blood Gas Notified Whom UP Blood Gas Notified Time 12/28/2016 12:36:05 AM White Blood Count 13.2 H Red Blood Count 4.00 L Hemoglobin 8.2 L Hematocrit 27.5 L Mean Corpuscular Volume 68.8 L Mean Corpuscular Hemoglobin 20.5 L Mean Corpuscular Hemoglobin Concent 29.8 L Red Cell Distribution Width 22.1 H Platelet Count 199 # Mean Platelet Volume Neutrophils % 65.0 Band Neutrophils % 20.0 H Lymphocytes % 7.0 L Monocytes % 6.0 Metamyelocytes % 2.0 H Neutrophils # 8.6 H Lymphocytes # 0.9 Monocytes # 0.8 Metamyelocytes # 0.3 Platelet Estimate PLT APPEAR ADEQUATE Prothrombin Time 17.3 H Prothrombin Time Ratio 1.4 INR International Normalized Ratio 1.41 Activated Partial Thromboplast Time > 180.0 *H Fibrinogen 320.0 # Sodium Level 134 L Potassium Level 3.2 L Chloride Level 114 H Carbon Dioxide Level 18 L Anion Gap 5 #L Blood Urea Nitrogen 21 H Creatinine 0.75 Glucose Level 137 Lactic Acid Level 3.1 H Calcium Level 6.6 L Phosphorus Level 2.5 Magnesium Level 1.6 L Troponin I 3.540 *H Amylase Level < 30 Lipase 80 Test 12/28/16 00:29 12/28/16 02:03 12/28/16 03:42 12/28/16 04:04 Bedside Glucose 127 178 160 Activated Partial Thromboplast Time 98.1 *H Test 12/28/16 04:45 12/28/16 05:33 12/28/16 06:00 12/28/16 08:03 White Blood Count 14.5 H Red Blood Count 4.29 L Hemoglobin 8.6 L Hematocrit 28.8 L Mean Corpuscular Volume 67.1 L Mean Corpuscular Hemoglobin 20.0 L Mean Corpuscular Hemoglobin Concent 29.9 L Red Cell Distribution Width 22.5 H Platelet Count 213 Mean Platelet Volume Neutrophils % 89.4 H Lymphocytes % 6.3 L Monocytes % 3.9 Eosinophils % 0.0 Basophils % 0.1 Nucleated Red Blood Cells % 0.1 H Neutrophils # 13.0 H Lymphocytes # 0.9 Monocytes # 0.6 Eosinophils # 0.0 Basophils # 0.0 Nucleated Red Blood Cells # 0.0 Prothrombin Time 16.4 H Prothrombin Time Ratio 1.3 INR International Normalized Ratio 1.31 Activated Partial Thromboplast Time 47.0 H Fibrinogen 410.0 # Sodium Level 136 Potassium Level 3.4 L Chloride Level 113 H Carbon Dioxide Level 18 L Anion Gap 8 Blood Urea Nitrogen 19 Creatinine 0.76 Glucose Level 151 Calcium Level 7.0 L Phosphorus Level 2.6 Magnesium Level 1.6 L Troponin I 3.350 *H Amylase Level < 30 Lipase 27 Bedside Glucose 158 144 Blood Gas Specimen Source Blood arterial Arterial Blood Date Drawn 12/28/2016 5:29:20 AM Arterial Blood pH (Temp corrected) 7.441 Arterial Blood pCO2 (Temp correct) 27.9 L Arterial Blood pO2 (Temp corrected) 74.1 L Arterial Blood HCO3 19.0 L Arterial Blood Base Excess -4.9 L Arterial Blood Oxygen Saturation 96.4 Harinder Test ACCEPTAB Arterial Blood Gas Puncture Site Right Radial Arterial Blood Carboxyhemoglobin 0.3 Arterial Blood Methemoglobin 0.4 Blood Gas A-a O2 Differential 254.1 H Oxyhemoglobin Percent 95.7 Total Hemoglobin 9.5 L Blood Gas Temperature 34.5 Blood Gas Respiration Rate 24.0 Blood Gas Actual Respiration Rate 24.0 Blood Gas Modality VENT - AC FiO2 50.0 Blood Gas Tidal Volume 550.0 Blood Gas Mean Airway Pressure 12 Blood Gas Low PEEP Setting 5.0 Blood Gas Inspiratory Pressure 28.0 Blood Gas Notified Alissa DOTSON RCP Blood Gas Notified Time 12/28/2016 5:40:47 AM Test 12/28/16 09:20 12/28/16 10:00 Vancomycin Level Trough 9.5 L Bedside Glucose 117 Medications Medications Current Medications Famotidine 20 mg 20 mg Q12 IV Last administered on 12/28/16 08:34; Admin Dose 20 MG; Start 12/26/16 at 23:00 Levofloxacin/ Dextrose 150 ml @ 100 mls/hr Q24H IVPB Last administered on 12/28 00:34; Admin Dose 100 MLS/HR; Start 12/27/16 at 23:00 Cefepime HCl (Maxipime 2gm/50 ml (Pmx)) 50 ml @ 100 mls/hr Q12 IVPB Last administered on 12/28/16 09:29; Admin Dose 100 MLS/HR; Start 12/27/16 at 09:00 Dextrose (D50w Syringe) 25 ml Q15M PRN IV Till BS 80 mg/dL or above x2; Start 12/27/16 at 04:00 Diagnostic Test (Pha) (Accu-Chek) 1 ea Q1H XX Last administered on 12/28/16 10 :01; Admin Dose 1 EA; Start 12/27/16 at 04:00 Dextrose 50 ml 50 ml Q15M PRN IV Till BS 80 mg/dL or above x2; Start 12/27/16 at 04:00 Sodium Bicarbonate/ Dextrose/Sodium Chloride (Na Bicarb/D5-1/ 2ns) 1,100 ml @ 100 mls/hr Q11H IV Last administered on 12/28/16 10:42; Admin Dose 100 MLS/HR ; Start 12/27/16 at 12:00 Aspirin (Aspirin) 81 mg DAILY NGT Last administered on 12/28/16 08:34; Admin Dose 81 MG; Start 12/27/16 at 13:30 Atorvastatin Calcium 80 mg 80 mg HS NGT Last administered on 12/27/16 20:43; Admin Dose 80 MG; Start 12/27/16 at 21:00 Vecuronium [employer]/Dextrose (Norcuron/D5W) 100 ml @ 0 mls/hr TITRATE IV Last administered on 12/27/16 21:54; Admin Dose 0.77 MLS/HR; Start 12/27/16 at 20:00 Acetaminophen (Tylenol Liquid) 500 mg Q6H NGT Last administered on 12/28/16 05 :29; Admin Dose 500 MG; Start 12/28/16 at 00:00; Stop 12/29/16 at 00:00 Eye Lubricant (Akwa Oint) 1 applic Q6H BOTH EYES Last administered on 05:29; Admin Dose 1 APPLIC; Start 12/28/16 at 00:00 Eye Lubricant 2 drop 2 drop Q6H BOTH EYES Last administered on 12/28/16 05:29 ; Admin Dose 2 DROP; Start 12/28/16 at 00:00 Vancomycin HCl 1.25 gm/Sodium Chloride 250 ml @ 83.333 mls/ hr Q12H IVPB ; Start 12/28/16 at 23:00 Magnesium Sulfate (Magnesium Sulfate 2 Gm/50 ml) 50 ml @ 25 mls/hr ONCE ONCE IVPB ; Start 12/28/16 at 12:00; Stop 12/28/16 at 13:59; Status Alan Garcia DO Dec 28, 2016 11:49
[2016-12-28] MEDS ORDERED: MAGNESIUM SULFATE 2 GM/50 ML 50 ML IVPB ONE (12:00)
[2016-12-28 12:03] LABS: ADD SCAN DIFF NO
[2016-12-28 12:10] LABS: ABNORMAL IP MESSAGE 1; BASOPHILS % 0.1 % (0.0-2.0); EOSINOPHILS % 0.1 % (0.0-7.0); HEMATOCRIT 26.3 % (42.0-52.0); HEMOGLOBIN 8.3 g/dl (14.0-18.0); LYMPHOCYTES # 1.3 10^3/ul (0.8-2.9); LYMPHOCYTES % 8.5 % (15.0-51.0); MEAN CORPUSCULAR HGB CONC 31.6 g/dl (32.0-37.0); MEAN CORPUSCULAR VOLUME 66.6 fl (82.0-101.0); MONOCYTE # 1.1 10^3/ul (0.3-0.9); MONOCYTES % 7.2 % (0.0-11.0); NEUTROPHIL # 12.8 10^3/ul (1.6-7.5); NEUTROPHILS % 83.8 % (39.0-77.0); NUCLEATED RED BLOOD CELLS% 0.2 /100WBC (0.0-0.0); PLATELET COUNT 224 10^3/UL (140-415); RED BLOOD COUNT 3.95 10^6/ul (4.70-6.10); RED CELL DISTRIBUTION WIDTH 22.7 % (11.5-14.5); WHITE BLOOD COUNT 15.2 10^3/ul (4.8-10.8)
[2016-12-28 12:32] LABS: CREATININE 0.78 mg/dl (0.61-1.24); MAGNESIUM 1.5 mg/dl (1.7-2.5); PHOSPHORUS 2.5 mg/dl (2.5-4.9)
[2016-12-28 12:33] LABS: CALCIUM 6.6 mg/dl (8.4-10.2)
[2016-12-28 12:36] LABS: AMYLASE < 30 U/L (11-123)
[2016-12-28 12:39] LABS: IRON < 10 ug/dl (35-150); POTASSIUM 2.8 mmol/L (3.5-5.1)
[2016-12-28 12:41] LABS: TOTAL IRON BINDING CAPACITY 308 ug/dl (241-421)
[2016-12-28 13:07] LABS: AADO2 Arterial 242.2 mmHg (7.0-24.0); Arterial Base Excess -4.7 mmol/L (-3.0-3); Arterial COHb 0.3 % (0.0-3.0); Arterial Fraction of Oxyhgb 95.4 % (93.0-99.0); Arterial HCO3 18.3 mmol/L (22.0-26.0); Arterial MetHb 0.4 % (0.0-1.5); Arterial Total Hemglobin 9.1 g/dl (12.0-18.0); MODE VENT - AC
[2016-12-28] MEDS: POTASSIUM CHLORIDE 250 ML IVPB SCH ×2 (13:55→17:28)
[2016-12-28 14:18] LABS: INR 1.4; PROTIME 17.2 Sec (12.2-14.2); PT RATIO 1.3
[2016-12-28 20:28] LABS: MAGNESIUM 2.2 mg/dl (1.7-2.5)
[2016-12-28 20:29] LABS: INR 1.32; PROTIME 16.5 Sec (12.2-14.2); PT RATIO 1.3
[2016-12-28] MEDS: ATORVASTATIN 80 MG TAB NGT SCH (20:34)
[2016-12-28 20:36] LABS: AMYLASE < 30 U/L (11-123)
[2016-12-28] MEDS: VANCOMYCIN 1.25 GM in SOD CHLORIDE 0.9% 250 ML IVPB SCH (23:07)
[2016-12-29] VITALS (105 sets, daily range): BP systolic 77–152; BP diastolic 47–93; PULSE 51–102; RESP 0–32
[2016-12-29] MEDS: ACCU-CHEK XX SCH ×23 (01:00→23:00)
[2016-12-29] MEDS: NORepinephrine 8MG/250 ML (PMX 250 ML IV SCH ×2 (03:13→10:55)
[2016-12-29] MEDS: PROPOFOL 100 ML IV SCH ×3 (05:07→21:56)
[2016-12-29 05:19] LABS: ADD SCAN DIFF NO
[2016-12-29 05:34] LABS: ABNORMAL IP MESSAGE 1; BASOPHILS % 0.1 % (0.0-2.0); EOSINOPHILS % 0.1 % (0.0-7.0); HEMATOCRIT 22.2 % (42.0-52.0); LYMPHOCYTES # 1.8 10^3/ul (0.8-2.9); LYMPHOCYTES % 13.4 % (15.0-51.0); MEAN CORPUSCULAR HEMOGLOBIN 19.9 pg (29.0-33.0); MEAN CORPUSCULAR HGB CONC 29.7 g/dl (32.0-37.0); MEAN CORPUSCULAR VOLUME 66.9 fl (82.0-101.0); MONOCYTES % 7.8 % (0.0-11.0); NEUTROPHIL # 10.4 10^3/ul (1.6-7.5); NEUTROPHILS % 78.3 % (39.0-77.0); NUCLEATED RED BLOOD CELLS% 0.2 /100WBC (0.0-0.0); PLATELET COUNT 220 10^3/UL (140-415); RED BLOOD COUNT 3.32 10^6/ul (4.70-6.10); WHITE BLOOD COUNT 13.3 10^3/ul (4.8-10.8)
[2016-12-29 05:44] LABS: INR 1.32; POTASSIUM 3.1 mmol/L (3.5-5.1); PROTIME 16.5 Sec (12.2-14.2); PT RATIO 1.3
[2016-12-29 05:47] LABS: CALCIUM 6.8 mg/dl (8.4-10.2)
[2016-12-29 05:49] LABS: PHOSPHORUS 1.7 mg/dl (2.5-4.9)
[2016-12-29 06:02] LABS: AMYLASE < 30 U/L (11-123)
[2016-12-29] MEDS: POTASSIUM CHLORIDE 50 ML IVPB PRN ×3 (06:22→10:54)
[2016-12-29 06:24] LABS: HEMOGLOBIN 6.6 g/dl (14.0-18.0)
[2016-12-29] MEDS: HEPARIN 25000 UNITS/250 ML 250 ML IV SCH (06:30)
[2016-12-29 06:36] LABS: Allen Test ACCEPTAB; Arterial Base Excess -0.4 mmol/L (-3.0-3); Arterial COHb 0.3 % (0.0-3.0); Arterial Fraction of Oxyhgb 95.3 % (93.0-99.0); Arterial HCO3 21.7 mmol/L (22.0-26.0); Arterial MetHb 0.5 % (0.0-1.5); Arterial Total Hemglobin 8.1 g/dl (12.0-18.0); MODE VENT - AC
[2016-12-29 07:46] LABS: HEMATOCRIT 22.4 % (42.0-52.0)
[2016-12-29 08:13] LABS: HEMOGLOBIN 6.9 g/dl (14.0-18.0)
[2016-12-29] MEDS: CEFEPIME 2GM/50 ML (PMX) 50 ML IVPB SCH ×2 (08:33→20:26)
[2016-12-29] MEDS: ASPIRIN 81 MG TAB NGT SCH (08:33)
[2016-12-29] MEDS: FAMOTIDINE 20 MG INJ IV SCH ×2 (08:33→20:25)
--- NOTE | 2016-12-29 10:10 | RADRPT ---
PROCEDURE: XR Chest. CLINICAL INDICATION: Respiratory failure TECHNIQUE: An AP view of the chest was obtained. COMPARISON: Chest x-ray dated 12/28/2016 FINDINGS: The endotracheal tube tip is approximately 4.1 cm above the esteban. The tip of the enteric tube ex tends below the left diaphragm. There is prominence of the interstitial and central pulmonary vascular markings with small bilatera l pleural effusions. No focal airspace opacification or pneumothorax is seen. The cardiomediastina l silhouette is mildly enlarged . Calcifications are seen within the aortic arch. The osseous stru ctures demonstrate senescent changes. IMPRESSION: 1. Findings suggestive of pulmonary vascular congestion with small bilateral pleural effusions. No significant interval change. 2. Mild cardiomegaly and aortic atherosclerosis. 3. Tubes and lines, as described above. RPTAT: HH .Kiarra Ng MD, Date Time Electronically viewed and signed by .Kiarra Ng MD, on 12/29/2016 10:10 .G/
[2016-12-29] MEDS: VANCOMYCIN 1.25 GM in SOD CHLORIDE 0.9% 250 ML IVPB SCH ×2 (10:53→22:38)
--- NOTE | 2016-12-29 11:04 | PN ---
Date/Time of Note Date/Time of Note DATE: 12/29/16 TIME: 11:02 Assessment/Plan VTE Prophylaxis VTE Prophylaxis Intervention: SCD's Lines/Catheters IV Catheter Type (from Nrs): Central Line Central line still needed: No Urinary Cath still in place: Yes Reason Cath still needed: urinary retention Assessment/Plan Assessment/Plan Cardiopulmonary arrest Non-ST elevation myocardial infarction Cardiomyopathy with ejection fraction 40% Respiratory failure Acute blood loss anemia status post blood transfusion -Echocardiogram reviewed with evidence of apical dyskinesis. Differential includes stress-induced cardiomyopathy versus coronary artery disease as etiology. Troponins have continued to trend down. Would continue aspirin and statin therapy, no beta-dante or JUANITA inhibitor given hypotension. d/c hep;traci due to drop in hct and would consider transufusin prbc -on pressors replete kcl Subjective 24 Hr Interval Summary Free Text/Dictation the patient with drop in HCT overnight Exam/Review of Systems Vital Signs Vitals Vital Signs Date Time Temp Pulse Resp B/P Pulse Ox O2 Delivery O2 Flow Rate FiO2 12/29/16 07:30 78 24 133/64 100 12/29/16 07:00 Mechanical Ventilator 12/29/16 06:00 40 12/29/16 04:00 98.7 Intake and Output 12/28/16 12/28/16 12/29/16 15:00 23:00 07:00 Intake Total 1101.304 ml 1380.308 ml 2834.807 ml Output Total 469 ml 281 ml 442 ml Balance 632.304 ml 1099.308 ml 2392.807 ml Results Result Diagram: 12/29/16 0700 12/29/16 0500 Results 24 hrs Laboratory Tests Test 12/28/16 11:50 12/28/16 11:54 12/28/16 12:00 12/28/16 13:50 White Blood Count 15.2 H Red Blood Count 3.95 L Hemoglobin 8.3 L Hematocrit 26.3 L Mean Corpuscular Volume 66.6 L Mean Corpuscular Hemoglobin 21.0 L Mean Corpuscular Hemoglobin Concent 31.6 L Red Cell Distribution Width 22.7 H Platelet Count 224 Mean Platelet Volume Neutrophils % 83.8 H Lymphocytes % 8.5 L Monocytes % 7.2 Eosinophils % 0.1 Basophils % 0.1 Nucleated Red Blood Cells % 0.2 H Neutrophils # 12.8 H Lymphocytes # 1.3 Monocytes # 1.1 H Eosinophils # 0.0 Basophils # 0.0 Nucleated Red Blood Cells # 0.0 Sodium Level 139 Potassium Level 2.8 *L Chloride Level 109 Carbon Dioxide Level 21 Anion Gap 12 Blood Urea Nitrogen 17 Creatinine 0.78 Glucose Level 107 # Calcium Level 6.6 L Phosphorus Level 2.5 Magnesium Level 1.5 L Iron Level < 10 L Total Iron Binding Capacity 308 Percent Iron Saturation Troponin I 4.170 *H Amylase Level < 30 Lipase 43 Bedside Glucose 111 Blood Gas Specimen Source Blood arterial Arterial Blood Date Drawn 12/28/2016 12:50:57 PM Arterial Blood pH (Temp corrected) 7.451 H Arterial Blood pCO2 (Temp correct) 26.9 L Arterial Blood pO2 (Temp corrected) 84.0 Arterial Blood HCO3 18.3 L Arterial Blood Base Excess -4.7 L Arterial Blood Oxygen Saturation 96.1 Harinder Test N/A Arterial Blood Gas Puncture Site Right Brachial Arterial Blood Carboxyhemoglobin 0.3 Arterial Blood Methemoglobin 0.4 Blood Gas A-a O2 Differential 242.2 H Oxyhemoglobin Percent 95.4 Total Hemoglobin 9.1 L Blood Gas Temperature 37.0 Blood Gas Respiration Rate 24.0 Blood Gas Actual Respiration Rate 24 Blood Gas Modality VENT - AC FiO2 50.0 Blood Gas Tidal Volume 550.0 Blood Gas Low PEEP Setting 5.0 Blood Gas Notified Whom JLD Blood Gas Notified Time 12/28/2016 1:07:06 PM Prothrombin Time 17.2 H Prothrombin Time Ratio 1.3 INR International Normalized Ratio 1.40 Activated Partial Thromboplast Time 50.4 H Fibrinogen 442.0 # Test 12/28/16 14:06 12/28/16 16:06 12/28/16 18:02 12/28/16 19:53 Bedside Glucose 132 127 132 113 Test 12/28/16 20:00 12/28/16 22:00 12/28/16 23:34 12/29/16 00:55 Prothrombin Time 16.5 H Prothrombin Time Ratio 1.3 INR International Normalized Ratio 1.32 Activated Partial Thromboplast Time 64.3 H Fibrinogen 457.0 Magnesium Level 2.2 Troponin I 3.970 *H 4.450 *H Amylase Level < 30 Lipase 34 Bedside Glucose 124 119 Test 12/29/16 01:36 12/29/16 02:06 12/29/16 03:45 12/29/16 05:00 Bedside Glucose 135 138 Activated Partial Thromboplast Time 71.1 *H White Blood Count 13.3 H Red Blood Count 3.32 L Hemoglobin 6.6 #*L Hematocrit 22.2 L Mean Corpuscular Volume 66.9 L Mean Corpuscular Hemoglobin 19.9 L Mean Corpuscular Hemoglobin Concent 29.7 L Red Cell Distribution Width 24.0 H Platelet Count 220 Mean Platelet Volume Neutrophils % 78.3 H Lymphocytes % 13.4 L Monocytes % 7.8 Eosinophils % 0.1 Basophils % 0.1 Nucleated Red Blood Cells % 0.2 H Neutrophils # 10.4 H Lymphocytes # 1.8 Monocytes # 1.0 H Eosinophils # 0.0 Basophils # 0.0 Nucleated Red Blood Cells # 0.0 Prothrombin Time 16.5 H Prothrombin Time Ratio 1.3 INR International Normalized Ratio 1.32 Fibrinogen 398.0 # Sodium Level 140 Potassium Level 3.1 L Chloride Level 111 H Carbon Dioxide Level 23 Anion Gap 9 Blood Urea Nitrogen 15 Creatinine 1.00 Glucose Level 114 Calcium Level 6.8 L Phosphorus Level 1.7 L Magnesium Level 2.0 Troponin I 4.410 *H Amylase Level < 30 Lipase 20 L Test 12/29/16 05:42 12/29/16 06:00 12/29/16 07:00 12/29/16 08:38 Bedside Glucose 119 133 Blood Gas Specimen Source Blood arterial Arterial Blood Date Drawn 12/29/2016 6:25:22 AM Arterial Blood pH (Temp corrected) 7.537 H Arterial Blood pCO2 (Temp correct) 26.2 L Arterial Blood pO2 (Temp corrected) 82.1 Arterial Blood HCO3 21.7 L Arterial Blood Base Excess -0.4 Arterial Blood Oxygen Saturation 96.1 Harinder Test ACCEPTAB Arterial Blood Gas Puncture Site Right Radial Arterial Blood Carboxyhemoglobin 0.3 Arterial Blood Methemoglobin 0.5 Blood Gas A-a O2 Differential 173.0 H Oxyhemoglobin Percent 95.3 Total Hemoglobin 8.1 L Blood Gas Temperature 37.0 Blood Gas Respiration Rate 24.0 Blood Gas Actual Respiration Rate 24 Blood Gas Modality VENT - AC FiO2 40.0 Blood Gas Tidal Volume 550.0 Blood Gas Low PEEP Setting 5.0 Blood Gas Notified Whom MA Blood Gas Notified Time 12/29/2016 6:36:11 AM Hemoglobin 6.9 *L Hematocrit 22.4 L Test 12/29/16 09:55 12/29/16 10:18 Bedside Glucose 130 Activated Partial Thromboplast Time 71.0 *H Medications Medications Current Medications Famotidine 20 mg 20 mg Q12 IV Last administered on 12/29/16 08:33; Admin Dose 20 MG; Start 12/26/16 at 23:00 Levofloxacin/ Dextrose 150 ml @ 100 mls/hr Q24H IVPB Last administered on 12/28 22:38; Admin Dose 100 MLS/HR; Start 12/27/16 at 23:00 Cefepime HCl (Maxipime 2gm/50 ml (Pmx)) 50 ml @ 100 mls/hr Q12 IVPB Last administered on 12/29/16 08:33; Admin Dose 100 MLS/HR; Start 12/27/16 at 09:00 Dextrose (D50w Syringe) 25 ml Q15M PRN IV Till BS 80 mg/dL or above x2; Start 12/27/16 at 04:00 Diagnostic Test (Pha) (Accu-Chek) 1 ea Q1H XX Last administered on 12/29/16 07 :00; Admin Dose 1 EA; Start 12/27/16 at 04:00 Dextrose 50 ml 50 ml Q15M PRN IV Till BS 80 mg/dL or above x2; Start 12/27/16 at 04:00 Sodium Bicarbonate/ Dextrose/Sodium Chloride (Na Bicarb/D5-1/ 2ns) 1,100 ml @ 100 mls/hr Q11H IV Last administered on 12/28/16 23:05; Admin Dose 100 MLS/HR ; Start 12/27/16 at 12:00 Aspirin (Aspirin) 81 mg DAILY NGT Last administered on 12/29/16 08:33; Admin Dose 81 MG; Start 12/27/16 at 13:30 Atorvastatin Calcium 80 mg 80 mg HS NGT Last administered on 12/28/16 20:34; Admin Dose 80 MG; Start 12/27/16 at 21:00 Vancomycin HCl/ Sodium Chloride (Vancocin/NS) 250 ml @ 83.333 mls/ hr Q12H IVPB Last administered on 12/29/16 10:53; Admin Dose 83.333 MLS/HR; Start at 23:00 JADEN ENGLISH MD Dec 29, 2016 11:03
[2016-12-29] MEDS: SODIUM BICARBONATE (IV ADD) 100 MEQ in DEXTROSE 5%-0.45% NACL 1,000 ML IV SCH (11:24)
[2016-12-29 11:28] LABS: PLATELET ESTIMATE PLT APPEAR ADEQUATE
[2016-12-29] MEDS ORDERED: SOD CHLORIDE 0.9% 250 ML IV* ONE (11:53)
--- NOTE | 2016-12-29 12:01 | SP ---
DATE OF PROCEDURE: 12/28/2016 INDICATION: A 71-year-old gentleman status post cardiopulmonary arrest. DESCRIPTION OF PROCEDURE: EEG was recorded digitally. [id number] and [id number] montages wer e recorded and reviewed. All impedances were measured and recorded. CPE electrodes were placed in accordance to International 10-20 system of electrode placement. FINDINGS: Symmetrically distributed background activity of low to medium amplitude ranging in frequ ency between 6 to 8 cycles per second was seen essentially throughout the recording. No definite re sponse to photic stimulation. There are intermittent movements and muscle artifacts present. No ep ileptiform transients were seen. No signs of ongoing electrographic seizures or lateralized slowing . IMPRESSION: Mildly abnormal study secondary to mild background slowing, which could reflect presenc e of encephalopathy. Finding is not specific, may be toxic metabolic in etiology or related to anox ia. Please correlate clinically. Dictated By: VITA MALDONADO/KEYSHA Conf#: [id number] DID#: [id number]
--- NOTE | 2016-12-29 12:36 | CONS ---
Date/Time of Note Date/Time of Note DATE: 12/29/16 TIME: 12:29 Consult Date/Type/Reason Admit Date/Time Dec 26, 2016 at 21:06 Initial Consult Date Type of Consultation: Pulm/CCM Subjective On vent. Sedated, yet responsive. Objective Vital Signs Date Time Temp Pulse Resp B/P Pulse Ox O2 Delivery O2 Flow Rate FiO2 12/29/16 11:30 68 0 123/69 100 12/29/16 11:00 Mechanical Ventilator 12/29/16 08:00 99.8 12/29/16 06:00 40 Intake and Output 12/28/16 12/28/16 12/29/16 15:00 23:00 07:00 Intake Total 1101.304 ml 1380.308 ml 2834.807 ml Output Total 469 ml 281 ml 442 ml Balance 632.304 ml 1099.308 ml 2392.807 ml Exam NECK: Supple. No JVD or lymphadenopathy. CARDIAC EXAM: S1, S2. No added sounds or murmurs. CHEST: Diminished air entry bilaterally. ABDOMEN: Soft, nontender. No guarding or rebound. EXTREMITIES: No cyanosis, clubbing or edema. NEURO: Responsive; moving all extremities Results/Medications Result Diagram: 12/29/16 0700 12/29/16 0500 Results 24 hrs Laboratory Tests Test 12/28/16 13:50 12/28/16 14:06 12/28/16 16:06 12/28/16 18:02 Prothrombin Time 17.2 H Prothrombin Time Ratio 1.3 INR International Normalized Ratio 1.40 Activated Partial Thromboplast Time 50.4 H Fibrinogen 442.0 # Bedside Glucose 132 127 132 Test 12/28/16 19:53 12/28/16 20:00 12/28/16 22:00 12/28/16 23:34 Bedside Glucose 113 124 119 Prothrombin Time 16.5 H Prothrombin Time Ratio 1.3 INR International Normalized Ratio 1.32 Activated Partial Thromboplast Time 64.3 H Fibrinogen 457.0 Magnesium Level 2.2 Troponin I 3.970 *H Amylase Level < 30 Lipase 34 Test 12/29/16 00:55 12/29/16 01:36 12/29/16 02:06 12/29/16 03:45 Troponin I 4.450 *H Bedside Glucose 135 138 Activated Partial Thromboplast Time 71.1 *H Test 12/29/16 05:00 12/29/16 05:42 12/29/16 06:00 12/29/16 07:00 White Blood Count 13.3 H Red Blood Count 3.32 L Hemoglobin 6.6 #*L 6.9 *L Hematocrit 22.2 L 22.4 L Mean Corpuscular Volume 66.9 L Mean Corpuscular Hemoglobin 19.9 L Mean Corpuscular Hemoglobin Concent 29.7 L Red Cell Distribution Width 24.0 H Platelet Count 220 Mean Platelet Volume Neutrophils % 78.3 H Lymphocytes % 13.4 L Monocytes % 7.8 Eosinophils % 0.1 Basophils % 0.1 Nucleated Red Blood Cells % 0.2 H Neutrophils # 10.4 H Lymphocytes # 1.8 Monocytes # 1.0 H Eosinophils # 0.0 Basophils # 0.0 Nucleated Red Blood Cells # 0.0 Platelet Estimate PLT APPEAR ADEQUATE Large Platelets MODERATE Prothrombin Time 16.5 H Prothrombin Time Ratio 1.3 INR International Normalized Ratio 1.32 Fibrinogen 398.0 # Sodium Level 140 Potassium Level 3.1 L Chloride Level 111 H Carbon Dioxide Level 23 Anion Gap 9 Blood Urea Nitrogen 15 Creatinine 1.00 Glucose Level 114 Calcium Level 6.8 L Phosphorus Level 1.7 L Magnesium Level 2.0 Troponin I 4.410 *H Amylase Level < 30 Lipase 20 L Bedside Glucose 119 Blood Gas Specimen Source Blood arterial Arterial Blood Date Drawn 12/29/2016 6:25:22 AM Arterial Blood pH (Temp corrected) 7.537 H Arterial Blood pCO2 (Temp correct) 26.2 L Arterial Blood pO2 (Temp corrected) 82.1 Arterial Blood HCO3 21.7 L Arterial Blood Base Excess -0.4 Arterial Blood Oxygen Saturation 96.1 Harinder Test ACCEPTAB Arterial Blood Gas Puncture Site Right Radial Arterial Blood Carboxyhemoglobin 0.3 Arterial Blood Methemoglobin 0.5 Blood Gas A-a O2 Differential 173.0 H Oxyhemoglobin Percent 95.3 Total Hemoglobin 8.1 L Blood Gas Temperature 37.0 Blood Gas Respiration Rate 24.0 Blood Gas Actual Respiration Rate 24 Blood Gas Modality VENT - AC FiO2 40.0 Blood Gas Tidal Volume 550.0 Blood Gas Low PEEP Setting 5.0 Blood Gas Notified Whom MA Blood Gas Notified Time 12/29/2016 6:36:11 AM Test 12/29/16 08:38 12/29/16 09:55 12/29/16 10:18 12/29/16 12:02 Bedside Glucose 133 130 110 Activated Partial Thromboplast Time 71.0 *H Medications Current Medications Famotidine 20 mg 20 mg Q12 IV Last administered on 12/29/16 08:33; Admin Dose 20 MG; Start 12/26/16 at 23:00 Levofloxacin/ Dextrose 150 ml @ 100 mls/hr Q24H IVPB Last administered on 12/28 22:38; Admin Dose 100 MLS/HR; Start 12/27/16 at 23:00 Cefepime HCl (Maxipime 2gm/50 ml (Pmx)) 50 ml @ 100 mls/hr Q12 IVPB Last administered on 12/29/16 08:33; Admin Dose 100 MLS/HR; Start 12/27/16 at 09:00 Dextrose (D50w Syringe) 25 ml Q15M PRN IV Till BS 80 mg/dL or above x2; Start 12/27/16 at 04:00 Diagnostic Test (Pha) (Accu-Chek) 1 ea Q1H XX Last administered on 12/29/16 07 :00; Admin Dose 1 EA; Start 12/27/16 at 04:00 Dextrose 50 ml 50 ml Q15M PRN IV Till BS 80 mg/dL or above x2; Start 12/27/16 at 04:00 Sodium Bicarbonate/ Dextrose/Sodium Chloride (Na Bicarb/D5-1/ 2ns) 1,100 ml @ 100 mls/hr Q11H IV Last administered on 12/29/16 11:24; Admin Dose 100 MLS/HR ; Start 12/27/16 at 12:00 Aspirin (Aspirin) 81 mg DAILY NGT Last administered on 12/29/16 08:33; Admin Dose 81 MG; Start 12/27/16 at 13:30 Atorvastatin Calcium 80 mg 80 mg HS NGT Last administered on 12/28/16 20:34; Admin Dose 80 MG; Start 12/27/16 at 21:00 Vancomycin HCl/ Sodium Chloride (Vancocin/NS) 250 ml @ 83.333 mls/ hr Q12H IVPB Last administered on 12/29/16 10:53; Admin Dose 83.333 MLS/HR; Start at 23:00 Assessment/Plan Additional Assessment/Plan IMPRESSION: 1. s/p Cardiopulmonary arrest--likely secondary to AMI 2. Respiratory Failure--Due to 1. 3. Lactic acidosis--resolved 4. Doubt significant anoxic encephalopathy 5. Metabolic acidosis. RECS: 1. Continue mechanical ventilation--given planned transfer to [place] 2. Cardiac Rx as per CV 3. D/C NaHCO3 gtt 4. Maintain propofol for sedation 5. DVT and GI prophylaxis Disposition Continue ICU care Critical care time 40 minutes PEGGY LEVI MD Dec 29, 2016 12:36
--- NOTE | 2016-12-29 13:58 | PN ---
Date/Time of Note Date/Time of Note DATE: 12/29/16 TIME: 13:56 Assessment/Plan VTE Prophylaxis VTE Prophylaxis Intervention: anti-embolic stocking Lines/Catheters IV Catheter Type (from Nrs): Central Line Central line still needed: Yes Urinary Cath still in place: Yes Reason Cath still needed: terminal illness/intractable pain Assessment/Plan Problems: (1) Non-ST elevation WI (NSTEMI) Status: Acute Comment: Stable. He is still on the ventilator with support. We will continue with aggressive intervention as it appears will possibly have a successful outcome (2) Septic shock Status: Acute Comment: He has strep in the bloodstream he is on appropriate antibiotics for this (3) History of sudden cardiac arrest successfully resuscitated Status: Acute Comment: Remains on full ventilator support. Assessment/Plan Severe anemia. We are going to transfuse him 2 units of following closely for the supportively Subjective 24 Hr Interval Summary Free Text/Dictation Older male lying in bed on a ventilator opens his eyes minimally to aggressive sedation Subjective hx not possible: pt critical status Exam/Review of Systems Vital Signs Vitals Vital Signs Date Time Temp Pulse Resp B/P Pulse Ox O2 Delivery O2 Flow Rate FiO2 12/29/16 13:40 69 24 100 40 12/29/16 13:15 112/59 12/29/16 13:00 Mechanical Ventilator 12/29/16 12:00 99.4 Intake and Output 12/28/16 12/28/16 12/29/16 15:00 23:00 07:00 Intake Total 1101.304 ml 1380.308 ml 2834.807 ml Output Total 469 ml 281 ml 442 ml Balance 632.304 ml 1099.308 ml 2392.807 ml Exam Neck: non-tender, other (Intubated), supple Respiratory: clear to auscultation, normal air movement Cardiovascular: nl pulses, regular rate and rhythm Results Result Diagram: 12/29/16 0700 12/29/16 0500 Results 24 hrs Laboratory Tests Test 12/28/16 14:06 12/28/16 16:06 12/28/16 18:02 12/28/16 19:53 Bedside Glucose 132 127 132 113 Test 12/28/16 20:00 12/28/16 22:00 12/28/16 23:34 12/29/16 00:55 Prothrombin Time 16.5 H Prothrombin Time Ratio 1.3 INR International Normalized Ratio 1.32 Activated Partial Thromboplast Time 64.3 H Fibrinogen 457.0 Magnesium Level 2.2 Troponin I 3.970 *H 4.450 *H Amylase Level < 30 Lipase 34 Bedside Glucose 124 119 Test 12/29/16 01:36 12/29/16 02:06 12/29/16 03:45 12/29/16 05:00 Bedside Glucose 135 138 Activated Partial Thromboplast Time 71.1 *H White Blood Count 13.3 H Red Blood Count 3.32 L Hemoglobin 6.6 #*L Hematocrit 22.2 L Mean Corpuscular Volume 66.9 L Mean Corpuscular Hemoglobin 19.9 L Mean Corpuscular Hemoglobin Concent 29.7 L Red Cell Distribution Width 24.0 H Platelet Count 220 Mean Platelet Volume Neutrophils % 78.3 H Lymphocytes % 13.4 L Monocytes % 7.8 Eosinophils % 0.1 Basophils % 0.1 Nucleated Red Blood Cells % 0.2 H Neutrophils # 10.4 H Lymphocytes # 1.8 Monocytes # 1.0 H Eosinophils # 0.0 Basophils # 0.0 Nucleated Red Blood Cells # 0.0 Platelet Estimate PLT APPEAR ADEQUATE Large Platelets MODERATE Prothrombin Time 16.5 H Prothrombin Time Ratio 1.3 INR International Normalized Ratio 1.32 Fibrinogen 398.0 # Sodium Level 140 Potassium Level 3.1 L Chloride Level 111 H Carbon Dioxide Level 23 Anion Gap 9 Blood Urea Nitrogen 15 Creatinine 1.00 Glucose Level 114 Calcium Level 6.8 L Phosphorus Level 1.7 L Magnesium Level 2.0 Troponin I 4.410 *H Amylase Level < 30 Lipase 20 L Test 12/29/16 05:42 12/29/16 06:00 12/29/16 07:00 12/29/16 08:38 Bedside Glucose 119 133 Blood Gas Specimen Source Blood arterial Arterial Blood Date Drawn 12/29/2016 6:25:22 AM Arterial Blood pH (Temp corrected) 7.537 H Arterial Blood pCO2 (Temp correct) 26.2 L Arterial Blood pO2 (Temp corrected) 82.1 Arterial Blood HCO3 21.7 L Arterial Blood Base Excess -0.4 Arterial Blood Oxygen Saturation 96.1 Harinder Test ACCEPTAB Arterial Blood Gas Puncture Site Right Radial Arterial Blood Carboxyhemoglobin 0.3 Arterial Blood Methemoglobin 0.5 Blood Gas A-a O2 Differential 173.0 H Oxyhemoglobin Percent 95.3 Total Hemoglobin 8.1 L Blood Gas Temperature 37.0 Blood Gas Respiration Rate 24.0 Blood Gas Actual Respiration Rate 24 Blood Gas Modality VENT - AC FiO2 40.0 Blood Gas Tidal Volume 550.0 Blood Gas Low PEEP Setting 5.0 Blood Gas Notified Whom MA Blood Gas Notified Time 12/29/2016 6:36:11 AM Hemoglobin 6.9 *L Hematocrit 22.4 L Test 12/29/16 09:55 12/29/16 10:18 12/29/16 12:02 Bedside Glucose 130 110 Activated Partial Thromboplast Time 71.0 *H Medications Medications Current Medications Famotidine 20 mg 20 mg Q12 IV Last administered on 12/29/16 08:33; Admin Dose 20 MG; Start 12/26/16 at 23:00 Levofloxacin/ Dextrose 150 ml @ 100 mls/hr Q24H IVPB Last administered on 12/28 22:38; Admin Dose 100 MLS/HR; Start 12/27/16 at 23:00 Cefepime HCl (Maxipime 2gm/50 ml (Pmx)) 50 ml @ 100 mls/hr Q12 IVPB Last administered on 12/29/16 08:33; Admin Dose 100 MLS/HR; Start 12/27/16 at 09:00 Dextrose (D50w Syringe) 25 ml Q15M PRN IV Till BS 80 mg/dL or above x2; Start 12/27/16 at 04:00 Diagnostic Test (Pha) (Accu-Chek) 1 ea Q1H XX Last administered on 12/29/16 07 :00; Admin Dose 1 EA; Start 12/27/16 at 04:00 Dextrose (D50w Syringe) 50 ml Q15M PRN IV Till BS 80 mg/dL or above x2; Start 12/27/16 at 04:00 Aspirin (Aspirin) 81 mg DAILY NGT Last administered on 12/29/16 08:33; Admin Dose 81 MG; Start 12/27/16 at 13:30 Atorvastatin Calcium 80 mg 80 mg HS NGT Last administered on 12/28/16 20:34; Admin Dose 80 MG; Start 12/27/16 at 21:00 Vancomycin HCl/ Sodium Chloride (Vancocin/NS) 250 ml @ 83.333 mls/ hr Q12H IVPB Last administered on 12/29/16 10:53; Admin Dose 83.333 MLS/HR; Start at 23:00 LEYLA CHAN MD Dec 29, 2016 13:58
--- NOTE | 2016-12-29 14:47 | RADRPT ---
Vent Rate: 68 bpm RR Interval: 0 msec SD Interval: 122 msec QRS Duration: 78 msec QT Interval: 602 msec QTC Interval: 640 msec P-R-T [place]: 61 - 43 - 0 degrees Sinus rhythm with premature atrial complexes ST amp; T wave abnormality, consider inferior ischemia ST amp; T wave abnormality, consider anterolateral ischemia Prolonged QT Abnormal ECG No previous tracing available for comparison Electronically Signed By: Felipe Lundberg [id number]
[2016-12-29] MEDS: ATORVASTATIN 80 MG TAB NGT SCH (20:26)
[2016-12-29 20:28] LABS: ADD SCAN DIFF NO
[2016-12-29 20:30] LABS: ABNORMAL IP MESSAGE 1; BASOPHILS % 0.1 % (0.0-2.0); EOSINOPHILS % 0.3 % (0.0-7.0); HEMATOCRIT 28.7 % (42.0-52.0); LYMPHOCYTES % 16.7 % (15.0-51.0); MEAN CORPUSCULAR HEMOGLOBIN 22.2 pg (29.0-33.0); MEAN CORPUSCULAR HGB CONC 31.4 g/dl (32.0-37.0); MEAN CORPUSCULAR VOLUME 70.7 fl (82.0-101.0); MONOCYTES % 8.6 % (0.0-11.0); NEUTROPHIL # 8.9 10^3/ul (1.6-7.5); NEUTROPHILS % 73.9 % (39.0-77.0); NUCLEATED RED BLOOD CELLS% 0.2 /100WBC (0.0-0.0); PLATELET COUNT 177 10^3/UL (140-415); RED BLOOD COUNT 4.06 10^6/ul (4.70-6.10); RED CELL DISTRIBUTION WIDTH 25.5 % (11.5-14.5); WHITE BLOOD COUNT 12.1 10^3/ul (4.8-10.8)
[2016-12-29] MEDS: LEVOFLOXACIN 750MG/D5W (PMX) 150 ML IVPB SCH (22:33)
[2016-12-30] VITALS (48 sets, daily range): BP systolic 99–144; BP diastolic 70–87; PULSE 48–71; RESP 12–25
[2016-12-30] MEDS: ACCU-CHEK XX SCH ×17 (00:09→16:00)
[2016-12-30] MEDS: NORepinephrine 8MG/250 ML (PMX 250 ML IV SCH (01:13)
[2016-12-30] MEDS: PROPOFOL 100 ML IV SCH ×3 (02:45→16:33)
[2016-12-30 04:56] LABS: AADO2 Arterial 163.4 mmHg (7.0-24.0); Allen Test ACCEPTAB; Arterial Base Excess -1.7 mmol/L (-3.0-3); Arterial COHb 0.3 % (0.0-3.0); Arterial Fraction of Oxyhgb 96.7 % (93.0-99.0); Arterial HCO3 19.3 mmol/L (22.0-26.0); Arterial MetHb 0.3 % (0.0-1.5); Arterial Total Hemglobin 10.1 g/dl (12.0-18.0); MODE VENT - AC
[2016-12-30 04:58] LABS: ADD SCAN DIFF NO
[2016-12-30 05:46] LABS: CALCIUM 7.2 mg/dl (8.4-10.2); CREATININE 0.95 mg/dl (0.61-1.24); POTASSIUM 3.4 mmol/L (3.5-5.1)
[2016-12-30] MEDS: POTASSIUM CHLORIDE 50 ML IVPB PRN ×2 (06:49→08:27)
--- NOTE | 2016-12-30 07:01 | RADRPT ---
PROCEDURE: XR Chest. TECHNIQUE: Single frontal radiograph. CLINICAL INDICATION: Respiratory distress. COMPARISON: 12/29/2016. FINDINGS: Endotracheal, nasogastric tubes remain in place. There are increased bilateral pleural effusions in the background of worsening vascular congestion/e elly and mild cardiomegaly. IMPRESSION: 1. Findings compatible with worsening CHF and/or volume overload. RPTAT: EE .Kentrell Jean Baptiste MD, MD Date Time Electronically viewed and signed by .Kentrell Jean Baptiste MD, MD on 12/30/2016 07:04 .C/
--- NOTE | 2016-12-30 07:33 | PN ---
Date/Time of Note Date/Time of Note DATE: 12/30/16 TIME: 07:27 Assessment/Plan VTE Prophylaxis VTE Prophylaxis Intervention: SCD's Lines/Catheters [facility]from [facility] Central Line Central line still needed: Yes Urinary Cath still in place: Yes Reason Cath still needed: terminal illness/intractable pain Assessment/Plan Problems: (1) Lactic acidosis Status: Resolved Comment: Initial significant lactic acidosis on admission due to his arrest has resolved. Please note that he had sepsis with septic shock (2) Systolic dysfunction Status: Chronic Comment: Duration of the systolic dysfunction is unknown. He has an EF on our echocardiogram 40%. We will be judicious with the IV fluids but he will need cardiac evaluation. Please note that it is quite possible that his cardiac issues were due to the sepsis on admission however indication still presents itself (3) Diastolic dysfunction Status: Chronic Comment: This is undoubtedly chronic condition he will stable once he is more stable he can be placed on very low-dose beta-blockade (4) Hyperlipidemia Status: Chronic Comment: He is on statin therapy Qualifiers: Hyperlipidemia type: pure hypercholesterolemia Qualified Code: E78.00 - Pure hypercholesterolemia (5) Sepsis due to alpha-hemolytic Streptococcus Status: Acute Comment: Blood cultures positive and presented with sepsis and septic shock manifested by shock tachycardia etc. He is on appropriate antibiotics for the situation. Source of the infection is not immediately revealed given his iron deficiency anemia he will need his GI tract ultimately investigated (6) Fatty liver Status: Chronic Comment: Noted no indication for therapeutics at this time (7) Tobacco abuse Status: Chronic Comment: Noted no indication for therapeutics at this time (8) Anoxic encephalopathy Status: Acute Comment: He is status post hypothermia protocol and actually appears to have some chance of decent recovery. The degree of which is unknown at this moment. He is still on propofol and sedation (9) Iron deficiency anemia Status: Chronic Comment: He came in with an extremely significant anemia. He is on GI tract prophylaxis and will check him and we have transfused him but ultimately he needs a iron infusions and be outpatient evaluation for the GI tract assuming that he does well Qualifiers: Iron deficiency anemia type: unspecified iron deficiency Qualified Code: D50.9 - Iron deficiency anemia, unspecified iron deficiency anemia type (10) Non-ST elevation OH (NSTEMI) Status: Acute Comment: As per cardiology. There is a certain special circumstance here. He is a [facility] patient will have to be transferring to [facility]. If he needs cardiac catheterization from a logistical standpoint be far easier if it is done here. [facility] only has one facility on [place] that can do cardiac catheterization. If we do the cath here then he can be transferred to any of that to closer [facility] facilities which would make his placement and return for simpler (11) History of sudden cardiac arrest successfully resuscitated Status: Acute Comment: Is status post hypothermia protocol and appears to be improving Subjective 24 Hr Interval Summary Free Text/Dictation Older male lying in bed sedated intubated with lines. Subjective hx not possible: pt non-verbal, pt critical status Exam/Review of Systems Vital Signs Vitals Vital Signs Date Time Temp Pulse Resp B/P Pulse Ox O2 Delivery O2 Flow Rate FiO2 12/30/16 06:00 59 16 128/75 100 Mechanical Ventilator 12/30/16 06:00 40 12/30/16 04:00 97.5 Intake and Output 12/29/16 12/29/16 12/30/16 15:00 23:00 07:00 Intake Total 302.08 ml 1394.72 ml 552.875 ml Output Total 613 ml 216 ml 645 ml Balance -310.92 ml 1178.72 ml -92.125 ml Exam Arousable to noxious stimuli moves all extremities Neck: non-tender, supple Respiratory: clear to auscultation, normal air movement Cardiovascular: nl pulses, regular rate and rhythm Gastrointestinal: nl liver, spleen, non-tender, soft Extremities: edema (2+ edema) Neurological: other (Sedated response still) Results Result Diagram: 12/29/16201412/30/16 0400 Results 24 hrs Laboratory Tests Test 12/29/16 08:38 12/29/16 09:55 12/29/16 10:18 12/29/16 12:02 Bedside Glucose 133 130 110 Activated Partial Thromboplast Time 71.0 *H Test 12/29/16 14:19 12/29/16 16:19 12/29/16 18:15 12/29/16 20:11 Bedside Glucose 116 108 110 101 Test 12/29/16 20:15 12/29/16 22:04 12/30/16 00:07 12/30/16 01:50 White Blood Count 12.1 H Red Blood Count 4.06 #L Hemoglobin 9.0 #L Hematocrit 28.7 #L Mean Corpuscular Volume 70.7 L Mean Corpuscular Hemoglobin 22.2 L Mean Corpuscular Hemoglobin Concent 31.4 L Red Cell Distribution Width 25.5 H Platelet Count 177 Mean Platelet Volume Neutrophils % 73.9 Lymphocytes % 16.7 Monocytes % 8.6 Eosinophils % 0.3 Basophils % 0.1 Nucleated Red Blood Cells % 0.2 H Neutrophils # 8.9 H Lymphocytes # 2.0 Monocytes # 1.0 H Eosinophils # 0.0 Basophils # 0.0 Nucleated Red Blood Cells # 0.0 Bedside Glucose 111 118 107 Test 12/30/16 04:00 12/30/16 04:12 12/30/16 04:20 12/30/16 05:00 Sodium Level 141 Potassium Level 3.4 L Chloride Level 117 H Carbon Dioxide Level 22 Anion Gap 5 L Blood Urea Nitrogen 16 Creatinine 0.95 Glucose Level 100 Calcium Level 7.2 L Bedside Glucose 111 Lactic Acid Level 1.6 Blood Gas Specimen Source Blood arterial Arterial Blood Date Drawn 12/30/2016 4:25:37 AM Arterial Blood pH (Temp corrected) 7.561 *H Arterial Blood pCO2 (Temp correct) 22.0 L Arterial Blood pO2 (Temp corrected) 96.5 H Arterial Blood HCO3 19.3 L Arterial Blood Base Excess -1.7 Arterial Blood Oxygen Saturation 97.3 Harinder Test ACCEPTAB Arterial Blood Gas Puncture Site Right Radial Arterial Blood Carboxyhemoglobin 0.3 Arterial Blood Methemoglobin 0.3 Blood Gas A-a O2 Differential 163.4 H Oxyhemoglobin Percent 96.7 Total Hemoglobin 10.1 L Blood Gas Temperature 37.0 Blood Gas Respiration Rate 24.0 Blood Gas Actual Respiration Rate 24 Blood Gas Modality VENT - AC FiO2 40.0 Blood Gas Tidal Volume 550.0 Blood Gas Inspiratory Pressure 20.0 Blood Gas Critical Value Read Back Blanco CENTENO RN Blood Gas Notified Whom MM Blood Gas Notified Time 12/30/2016 4:56:33 AM Test 12/30/16 05:31 Bedside Glucose 102 Medications Medications Current Medications Famotidine 20 mg 20 mg Q12 IV Last administered on 12/29/16 20:25; Admin Dose 20 MG; Start 12/26/16 at 23:00 Levofloxacin/ Dextrose 150 ml @ 100 mls/hr Q24H IVPB Last administered on 12/29 22:33; Admin Dose 100 MLS/HR; Start 12/27/16 at 23:00 Cefepime HCl (Maxipime 2gm/50 ml (Pmx)) 50 ml @ 100 mls/hr Q12 IVPB Last administered on 12/29/16 20:26; Admin Dose 100 MLS/HR; Start 12/27/16 at 09:00 Dextrose (D50w Syringe) 25 ml Q15M PRN IV Till BS 80 mg/dL or above x2; Start 12/27/16 at 04:00 Diagnostic Test (Pha) (Accu-Chek) 1 ea Q1H XX Last administered on 12/30/16 05 :37; Admin Dose 1 EA; Start 12/27/16 at 04:00 Dextrose (D50w Syringe) 50 ml Q15M PRN IV Till BS 80 mg/dL or above x2; Start 12/27/16 at 04:00 Aspirin (Aspirin) 81 mg DAILY NGT Last administered on 12/29/16 08:33; Admin Dose 81 MG; Start 12/27/16 at 13:30 Atorvastatin Calcium 80 mg 80 mg HS NGT Last administered on 12/29/16 20:26; Admin Dose 80 MG; Start 12/27/16 at 21:00 Vancomycin HCl/ Sodium Chloride (Vancocin/NS) 250 ml @ 83.333 mls/ hr Q12H IVPB Last administered on 12/29/16 22:38; Admin Dose 83.333 MLS/HR; Start at 23:00 Miscellaneous Information (*Rx Drug Level Order Reminder*) VANCOMYCIN TROUGH AT 1000 ONCE ONCE XX ; Start 12/30/16 at 10:00; Stop 12/30/16 at 10:01 LEYLA CHAN MD Dec 30, 2016 07:33
[2016-12-30 07:41] LABS: ABNORMAL IP MESSAGE 1; BASOPHILS % 0.2 % (0.0-2.0); EOSINOPHILS # 0.1 10^3/ul (0.0-0.5); EOSINOPHILS % 0.9 % (0.0-7.0); HEMATOCRIT 28.1 % (42.0-52.0); HEMOGLOBIN 8.9 g/dl (14.0-18.0); LYMPHOCYTES # 2.1 10^3/ul (0.8-2.9); LYMPHOCYTES % 20.1 % (15.0-51.0); MEAN CORPUSCULAR HEMOGLOBIN 22.3 pg (29.0-33.0); MEAN CORPUSCULAR HGB CONC 31.7 g/dl (32.0-37.0); MEAN CORPUSCULAR VOLUME 70.4 fl (82.0-101.0); MONOCYTE # 0.8 10^3/ul (0.3-0.9); MONOCYTES % 7.5 % (0.0-11.0); NEUTROPHIL # 7.5 10^3/ul (1.6-7.5); NEUTROPHILS % 70.7 % (39.0-77.0); NUCLEATED RED BLOOD CELLS% 0.2 /100WBC (0.0-0.0); PLATELET COUNT 192 10^3/UL (140-415); RED BLOOD COUNT 3.99 10^6/ul (4.70-6.10); RED CELL DISTRIBUTION WIDTH 25.1 % (11.5-14.5); WHITE BLOOD COUNT 10.5 10^3/ul (4.8-10.8)
[2016-12-30] MEDS: FAMOTIDINE 20 MG INJ IV SCH (09:48)
[2016-12-30] MEDS: ASPIRIN 81 MG TAB NGT SCH (09:48)
[2016-12-30] MEDS: CEFEPIME 2GM/50 ML (PMX) 50 ML IVPB SCH (09:49)
[2016-12-30] MEDS ORDERED: SOD FERRIC GLUC COMPLX 125 MG in SOD CHLORIDE 0.9% 100 ML IVPB SCH (11:00)
[2016-12-30] MEDS: VANCOMYCIN 1.25 GM in SOD CHLORIDE 0.9% 250 ML IVPB SCH (12:03)
--- NOTE | 2016-12-30 12:42 | CONS ---
Date/Time of Note Date/Time of Note DATE: 12/30/16 TIME: 12:40 Consult Date/Type/Reason Admit Date/Time Dec 26, 2016 at 21:06 Type of Consultation: Pulm/CCM Subjective More responsive on the vent. Off pressors. Follows commands. Objective Vital Signs Date Time Temp Pulse Resp B/P Pulse Ox O2 Delivery O2 Flow Rate FiO2 12/30/16 12:00 65 12/30/16 11:00 20 135/79 Mechanical Ventilator 12/30/16 10:30 100 12/30/16 07:30 98.6 12/30/16 06:00 40 Intake and Output 12/29/16 12/29/16 12/30/16 15:00 23:00 07:00 Intake Total 302.08 ml 1394.72 ml 565.647 ml Output Total 613 ml 216 ml 645 ml Balance -310.92 ml 1178.72 ml -79.353 ml Exam NECK: Supple. No JVD or lymphadenopathy. CARDIAC EXAM: S1, S2. No added sounds or murmurs. CHEST: Bibasilar rales ABDOMEN: Soft, nontender. No guarding or rebound. EXTREMITIES: No cyanosis, clubbing: +1-2 edema NEURO: Responsive; moving all extremities Results/Medications Result Diagram: 12/30/16 0400 12/30/16 0400 Results 24 hrs Laboratory Tests Test 12/29/16 14:19 12/29/16 16:19 12/29/16 18:15 12/29/16 20:11 Bedside Glucose 116 108 110 101 Test 12/29/16 20:15 12/29/16 22:04 12/30/16 00:07 12/30/16 01:50 White Blood Count 12.1 H Red Blood Count 4.06 #L Hemoglobin 9.0 #L Hematocrit 28.7 #L Mean Corpuscular Volume 70.7 L Mean Corpuscular Hemoglobin 22.2 L Mean Corpuscular Hemoglobin Concent 31.4 L Red Cell Distribution Width 25.5 H Platelet Count 177 Mean Platelet Volume Neutrophils % 73.9 Lymphocytes % 16.7 Monocytes % 8.6 Eosinophils % 0.3 Basophils % 0.1 Nucleated Red Blood Cells % 0.2 H Neutrophils # 8.9 H Lymphocytes # 2.0 Monocytes # 1.0 H Eosinophils # 0.0 Basophils # 0.0 Nucleated Red Blood Cells # 0.0 Bedside Glucose 111 118 107 Test 12/30/16 04:00 12/30/16 04:12 12/30/16 04:20 12/30/16 05:00 White Blood Count 10.5 Red Blood Count 3.99 L Hemoglobin 8.9 L Hematocrit 28.1 L Mean Corpuscular Volume 70.4 L Mean Corpuscular Hemoglobin 22.3 L Mean Corpuscular Hemoglobin Concent 31.7 L Red Cell Distribution Width 25.1 H Platelet Count 192 Mean Platelet Volume Neutrophils % 70.7 Lymphocytes % 20.1 Monocytes % 7.5 Eosinophils % 0.9 Basophils % 0.2 Nucleated Red Blood Cells % 0.2 H Neutrophils # 7.5 Lymphocytes # 2.1 Monocytes # 0.8 Eosinophils # 0.1 Basophils # 0.0 Nucleated Red Blood Cells # 0.0 Sodium Level 141 Potassium Level 3.4 L Chloride Level 117 H Carbon Dioxide Level 22 Anion Gap 5 L Blood Urea Nitrogen 16 Creatinine 0.95 Glucose Level 100 Calcium Level 7.2 L Bedside Glucose 111 Lactic Acid Level 1.6 Blood Gas Specimen Source Blood arterial Arterial Blood Date Drawn 12/30/2016 4:25:37 AM Arterial Blood pH (Temp corrected) 7.561 *H Arterial Blood pCO2 (Temp correct) 22.0 L Arterial Blood pO2 (Temp corrected) 96.5 H Arterial Blood HCO3 19.3 L Arterial Blood Base Excess -1.7 Arterial Blood Oxygen Saturation 97.3 Harinder Test ACCEPTAB Arterial Blood Gas Puncture Site Right Radial Arterial Blood Carboxyhemoglobin 0.3 Arterial Blood Methemoglobin 0.3 Blood Gas A-a O2 Differential 163.4 H Oxyhemoglobin Percent 96.7 Total Hemoglobin 10.1 L Blood Gas Temperature 37.0 Blood Gas Respiration Rate 24.0 Blood Gas Actual Respiration Rate 24 Blood Gas Modality VENT - AC FiO2 40.0 Blood Gas Tidal Volume 550.0 Blood Gas Inspiratory Pressure 20.0 Blood Gas Critical Value Read Back Blanco CENTENO RN Blood Gas Notified Whom MM Blood Gas Notified Time 12/30/2016 4:56:33 AM Test 12/30/16 05:31 12/30/16 08:36 12/30/16 09:58 12/30/16 10:14 Bedside Glucose 102 92 84 Vancomycin Level Trough 15.6 Test 12/30/16 12:03 Bedside Glucose 84 Medications Current Medications Famotidine 20 mg 20 mg Q12 IV Last administered on 12/30/16 09:48; Admin Dose 20 MG; Start 12/26/16 at 23:00 Levofloxacin/ Dextrose 150 ml @ 100 mls/hr Q24H IVPB Last administered on 12/29 22:33; Admin Dose 100 MLS/HR; Start 12/27/16 at 23:00 Cefepime HCl (Maxipime 2gm/50 ml (Pmx)) 50 ml @ 100 mls/hr Q12 IVPB Last administered on 12/30/16 09:49; Admin Dose 100 MLS/HR; Start 12/27/16 at 09:00 Dextrose (D50w Syringe) 25 ml Q15M PRN IV Till BS 80 mg/dL or above x2; Start 12/27/16 at 04:00 Diagnostic Test (Pha) (Accu-Chek) 1 ea Q1H XX Last administered on 12/30/16 12 :03; Admin Dose 1 EA; Start 12/27/16 at 04:00 Dextrose (D50w Syringe) 50 ml Q15M PRN IV Till BS 80 mg/dL or above x2; Start 12/27/16 at 04:00 Aspirin (Aspirin) 81 mg DAILY NGT Last administered on 12/30/16 09:48; Admin Dose 81 MG; Start 12/27/16 at 13:30 Atorvastatin Calcium 80 mg 80 mg HS NGT Last administered on 12/29/16 20:26; Admin Dose 80 MG; Start 12/27/16 at 21:00 Vancomycin HCl 1.25 gm/Sodium Chloride 250 ml @ 83.333 mls/ hr Q12H IVPB Last administered on 12/30/16 12:03; Admin Dose 83.333 MLS/HR; Start 12/28/16 at 23: 00 Ferric Sodium Gluconate Complex 125 mg/Sodium Chloride 110 ml @ 100 mls/hr Q24H IVPB Last administered on 12/30/16 11:45; Admin Dose 100 MLS/HR; Start at 11:00; Stop 01/01/17 at 12:05 Norepinephrine/ Dextrose (Levophed/D5W) 500 ml @ 0 mls/hr TITRATE IV ; Start at 13:00 Assessment/Plan Additional Assessment/Plan IMPRESSION: 1. s/p Cardiopulmonary arrest--likely secondary to AMI 2. Respiratory Failure--Due to 1. 3. Lactic acidosis--resolved 4. Doubt significant anoxic encephalopathy 5. Metabolic acidosis. RECS: 1. Continue mechanical ventilation--given planned transfer to [place] 2. Cardiac Rx as per CV 3. Diuresis to maintain 1-2 liters negative 4. Maintain propofol for sedation 5. DVT and GI prophylaxis Disposition Continue ICU care Critical care time 40 minutes PEGGY LEVI MD Dec 30, 2016 12:42
[2016-12-30] MEDS ORDERED: FUROSEMIDE 20 MG INJ IV SCH (13:00)
--- NOTE | 2016-12-30 13:10 | DS ---
Date/Time of Note Date/Time of Note DATE: 12/30/16 TIME: 13:02 Discharge Summary Admission/Discharge Info Admit Date/Time Dec 26, 2016 at 21:06 Discharge Date/Time 12/30/2016 Final Diagnosis Cardiac arrest with PEA in the setting of acute coronary syndrome and alpha hemolytic strep sepsis.; Diabetes mellitus type 2; systolic and diastolic dysfunction; coronary artery disease; iron deficiency anemia; metabolic and anoxic encephalopathy post hypothermia; tobacco abuse history; hypertension; hyperlipidemia; fatty liver Patient Condition: Critical Consults Pulmonology; cardiology; neurology Procedures Intubation mechanical ventilation; hypothermia protocol; echocardiogram; transfusion CT scan brain; chest CT angiogram 1. No evidence of acute intracranial hemorrhage, infarcts, or acute intracranial pathology. 2. Mild chronic microvascular ischemic disease and diffuse volume loss. 3. Moderate atherosclerotic vascular disease 4. Right maxillary sinus mucous retention cyst, polyp or polypoid mass . Recommend additional imaging of the sinuses. 1. No CT evidence for pulmonary embolus. 2. Left greater than right bibasilar discoid atelectasis or early infiltrate with small right pleural effusion. 3. Mild cardiomegaly and atherosclerotic vascular disease 4. Tubes and lines as indicated above. 5. Degenerative spondylosis of the imaged spine. 6. Mild diffuse fatty infiltration of the liver. Conclusions 1. Normal left ventricular cavity size. Normal left ventricular wall thickness. Moderate left ventricular systolic dysfunction. Ejection fraction is visually estimated at 40 %. Tissue Doppler/Mitral Doppler indices are consistent with impaired relaxation (Stage I diastolic dysfunction). Multiple wall motion abnormalities. 2. Normal right ventricular size. Normal right ventricular systolic function. 3. The left atrium is normal in size. 4. The right atrium is normal in size. 5. Mild mitral valve regurgitation. 6. No significant valvular stenosis or regurgitation seen of remaining visualized valves. 7. Normal pericardium with no significant pericardial effusion. Hx of Present Illness This is a 71-year-old male with a past medical history of hypertension who presents to the emergency department brought in by EMS after he had a witnessed cardiac arrest by his just prior to arrival. His indicates that they were in the courthouse prior to arrival to undergo a deposition when he stated he was complaining of shortness of breath. They got in the car and while driving the patient developed agonal respirations and continue to complain of shortness of breath but did not complain of any chest pain. His became very nervous and noticed a fire station which she immediately pulled into. EMS indicated that the patient had developed a PEA activity. They were unable to secure an airway and underwent bag mask ventilation. They administered CPR and a total of 3 mg of epinephrine and shocked the patient 3 times due to a ventricular fibrillation rhythm. The EMS performed an Accu-Chek was performed and normal. The patient en route had return of spontaneous circulation. The indicates they return from [facility] [place] 2 months prior to arrival. He is compliant with his antihypertensive medications. He denies a recent remote headache. His states he has not complained any calf tenderness or swelling to his lower extremities. He has not had a productive or nonproductive cough recently and no recent hospitalizations. Hospital Course 71-year-old male who is brought in with rather significant issues. He underwent hypothermia protocol and aggressive treatment. Ultimately he has been determined that he had in addition to the acute coronary syndrome sepsis with alpha hemolytic strep. He has been maintained on intravenous antibiotics has been rewarmed has actually done well is demonstrating improvement. He has come off of pressor support and is responding to questions although he is still modestly sedated. He remains intubated for the time being as it is a little premature to extubate him. The active issues in his care are getting him off of the ventilator; evaluation of his cardiac status which will require coronary angiography and intervention if indicated; evaluation of the iron deficiency anemia with an eye toward evaluating why he had the sepsis. At this time he is critical but stable for transfer his rehabilitation potential is fair and hopefully good. He has no known communicable diseases. Home Meds Reported Medications Ibuprofen* (Ibuprofen*) 800 Mg Tab, 800 MG PO QID, TAB 12/26/16 Hydrochlorothiazide* (Hydrochlorothiazide*) 12.5 Mg Tablet, 12.5 MG PO DAILY, # 30 TAB 12/26/16 Lisinopril* (Lisinopril*) 20 Mg Tablet, 20 MG PO DAILY, #30 TAB 12/26/16 Discontinued Reported Medications Lisinopril* (Prinivil*) 20 Mg Tablet, 20 MG PO DAILY, #30 TAB 12/26/16 Follow-up Plan Transferred by [facility] with nurse and respiratory therapy to [facility] as per the request of the [facility]. Pending Labs Laboratory Tests Test 12/29/16 14:19 12/29/16 16:19 12/29/16 18:15 12/29/16 20:11 Bedside Glucose 116mg/dL (70-220) 108mg/dL (70-220) 110mg/dL (70-220) 101mg/dL (70-220) Test 12/29/16 20:15 12/29/16 22:04 12/30/16 00:07 12/30/16 01:50 White Blood Count 12.110^3/ul (4.8-10.8) Red Blood Count 4.0610^6/ul (4.70-6.10) Hemoglobin 9.0g/dl (14.0-18.0) Hematocrit 28.7% (42.0-52.0) Mean Corpuscular Volume 70.7fl (82.0-101.0) Mean Corpuscular Hemoglobin 22.2pg (29.0-33.0) Mean Corpuscular Hemoglobin Concent 31.4g/dl (32.0-37.0) Red Cell Distribution Width 25.5% (11.5-14.5) Platelet Count 02243^3/UL (140-415) Mean Platelet Volume fl (7.4-10.4) Neutrophils % 73.9% (39.0-77.0) Lymphocytes % 16.7% (15.0-51.0) Monocytes % 8.6% (0.0-11.0) Eosinophils % 0.3% (0.0-7.0) Basophils % 0.1% (0.0-2.0) Nucleated Red Blood Cells % 0.2/100WBC (0.0-0.0) Neutrophils # 8.910^3/ul (1.6-7.5) Lymphocytes # 2.010^3/ul (0.8-2.9) Monocytes # 1.010^3/ul (0.3-0.9) Eosinophils # 0.010^3/ul (0.0-0.5) Basophils # 0.010^3/ul (0.0-0.1) Nucleated Red Blood Cells # 0.010^3/ul (0.0-0.0) Bedside Glucose 111mg/dL (70-220) 118mg/dL (70-220) 107mg/dL (70-220) Test 12/30/16 04:00 12/30/16 04:12 12/30/16 04:20 12/30/16 05:00 White Blood Count 10.510^3/ul (4.8-10.8) Red Blood Count 3.9910^6/ul (4.70-6.10) Hemoglobin 8.9g/dl (14.0-18.0) Hematocrit 28.1% (42.0-52.0) Mean Corpuscular Volume 70.4fl (82.0-101.0) Mean Corpuscular Hemoglobin 22.3pg (29.0-33.0) Mean Corpuscular Hemoglobin Concent 31.7g/dl (32.0-37.0) Red Cell Distribution Width 25.1% (11.5-14.5) Platelet Count 06801^3/UL (140-415) Mean Platelet Volume fl (7.4-10.4) Neutrophils % 70.7% (39.0-77.0) Lymphocytes % 20.1% (15.0-51.0) Monocytes % 7.5% (0.0-11.0) Eosinophils % 0.9% (0.0-7.0) Basophils % 0.2% (0.0-2.0) Nucleated Red Blood Cells % 0.2/100WBC (0.0-0.0) Neutrophils # 7.510^3/ul (1.6-7.5) Lymphocytes # 2.110^3/ul (0.8-2.9) Monocytes # 0.810^3/ul (0.3-0.9) Eosinophils # 0.110^3/ul (0.0-0.5) Basophils # 0.010^3/ul (0.0-0.1) Nucleated Red Blood Cells # 0.010^3/ul (0.0-0.0) Sodium Level 141mmol/L (135-144) Potassium Level 3.4mmol/L (3.5-5.1) Chloride Level 117mmol/L (97-110) Carbon Dioxide Level 22mmol/L (21-31) Anion Gap 5 (8-16) Blood Urea Nitrogen 16mg/dl (7-20) Creatinine 0.95mg/dl (0.61-1.24) Glucose Level 100mg/dl (70-220) Calcium Level 7.2mg/dl (8.4-10.2) Bedside Glucose 111mg/dL (70-220) Lactic Acid Level 1.6mmol/L (0.5-2.2) Blood Gas Specimen Source Blood arterial Arterial Blood Date Drawn 12/30/2016 4:25:37 AM Arterial Blood pH (Temp corrected) 7.561 (7.350-7.450) Arterial Blood pCO2 (Temp correct) 22.0mmhg (35-45) Arterial Blood pO2 (Temp corrected) 96.5mmHG (80-90.0) Arterial Blood HCO3 19.3mmol/L (22.0-26.0) Arterial Blood Base Excess -1.7mmol/L (-3.0-3) Arterial Blood Oxygen Saturation 97.3mmHG (95.0-100.0) Harinder Test ACCEPTAB Arterial Blood Gas Puncture Site Right Radial Arterial Blood Carboxyhemoglobin 0.3% (0.0-3.0) Arterial Blood Methemoglobin 0.3% (0.0-1.5) Blood Gas A-a O2 Differential 163.4mmHg (7.0-24.0) Oxyhemoglobin Percent 96.7% (93.0-99.0) Total Hemoglobin 10.1g/dl (12.0-18.0) Blood Gas Temperature 37.0C Blood Gas Respiration Rate 24.0 Blood Gas Actual Respiration Rate 24 Blood Gas Modality VENT - AC FiO2 40.0% Blood Gas Tidal Volume 550.0mL Blood Gas Inspiratory Pressure 20.0 Blood Gas Critical Value Read Back Blanco CENTENO RN Blood Gas Notified Whom MM Blood Gas Notified Time 12/30/2016 4:56:33 AM Test 12/30/16 05:31 12/30/16 08:36 12/30/16 09:58 12/30/16 10:14 Bedside Glucose 102mg/dL (70-220) 92mg/dL (70-220) 84mg/dL (70-220) Vancomycin Level Trough 15.6ug/ml (10.0-20.0) Test 12/30/16 12:03 Bedside Glucose 84mg/dL (70-220) LEYLA CHAN MD Dec 30, 2016 13:10
--- NOTE | 2016-12-30 13:13 | CONS ---
Date/Time of Note Date/Time of Note DATE: 12/30/16 TIME: 13:11 Assessment/Plan Assessment/Plan Additional Assessment/Plan Cardiopulmonary arrest Non-ST elevation myocardial infarction Cardiomyopathy with ejection fraction 40% Respiratory failure Acute blood loss anemia status post blood transfusion -Patient following some basic commands but still remains sedated. Unfortunately given recurrent worsening anemia, heparin was stopped. Continue aspirin, statin therapy. Off IV pressors since this morning I would hold off on initiation of beta-dante. Maintain potassium above 4.0 and magnesium above 2.0. Consultation Date/Type/Reason Admit Date/Time Dec 26, 2016 at 21:06 Type of Consultation: cv 24 HR Interval Summary Free Text/Dictation Patient seen and examined, following some basic commands, opening his eyes to his name, at bedside Exam/Review of Systems Vital Signs Vitals Vital Signs Date Time Temp Pulse Resp B/P Pulse Ox O2 Delivery O2 Flow Rate FiO2 12/30/16 12:00 65 12/30/16 11:00 20 135/79 Mechanical Ventilator 12/30/16 10:30 100 12/30/16 07:30 98.6 12/30/16 06:00 40 Intake and Output 12/29/16 12/29/16 12/30/16 14:59 22:59 06:59 Intake Total 364.766 ml 1324.02 ml 662.875 ml Output Total 692 ml 251 ml 663 ml Balance -327.234 ml 1073.02 ml -0.125 ml Exam Sedated but arousable, following some basic commands, no apparent distress Head: normocephalic ENMT: intubated Respiratory: other (Coarse breath sounds bilaterally, no wheezing) Cardiovascular: other (S1-S2 heard), regular rate and rhythm Gastrointestinal: bowel sounds, non-tender, other (No guarding), soft Extremities: edema Results Result Diagram: 12/30/16 0400 12/30/16 0400 Results 24 hrs Laboratory Tests Test 12/29/16 14:19 12/29/16 16:19 12/29/16 18:15 12/29/16 20:11 Bedside Glucose 116 108 110 101 Test 12/29/16 20:15 12/29/16 22:04 12/30/16 00:07 12/30/16 01:50 White Blood Count 12.1 H Red Blood Count 4.06 #L Hemoglobin 9.0 #L Hematocrit 28.7 #L Mean Corpuscular Volume 70.7 L Mean Corpuscular Hemoglobin 22.2 L Mean Corpuscular Hemoglobin Concent 31.4 L Red Cell Distribution Width 25.5 H Platelet Count 177 Mean Platelet Volume Neutrophils % 73.9 Lymphocytes % 16.7 Monocytes % 8.6 Eosinophils % 0.3 Basophils % 0.1 Nucleated Red Blood Cells % 0.2 H Neutrophils # 8.9 H Lymphocytes # 2.0 Monocytes # 1.0 H Eosinophils # 0.0 Basophils # 0.0 Nucleated Red Blood Cells # 0.0 Bedside Glucose 111 118 107 Test 12/30/16 04:00 12/30/16 04:12 12/30/16 04:20 12/30/16 05:00 White Blood Count 10.5 Red Blood Count 3.99 L Hemoglobin 8.9 L Hematocrit 28.1 L Mean Corpuscular Volume 70.4 L Mean Corpuscular Hemoglobin 22.3 L Mean Corpuscular Hemoglobin Concent 31.7 L Red Cell Distribution Width 25.1 H Platelet Count 192 Mean Platelet Volume Neutrophils % 70.7 Lymphocytes % 20.1 Monocytes % 7.5 Eosinophils % 0.9 Basophils % 0.2 Nucleated Red Blood Cells % 0.2 H Neutrophils # 7.5 Lymphocytes # 2.1 Monocytes # 0.8 Eosinophils # 0.1 Basophils # 0.0 Nucleated Red Blood Cells # 0.0 Sodium Level 141 Potassium Level 3.4 L Chloride Level 117 H Carbon Dioxide Level 22 Anion Gap 5 L Blood Urea Nitrogen 16 Creatinine 0.95 Glucose Level 100 Calcium Level 7.2 L Bedside Glucose 111 Lactic Acid Level 1.6 Blood Gas Specimen Source Blood arterial Arterial Blood Date Drawn 12/30/2016 4:25:37 AM Arterial Blood pH (Temp corrected) 7.561 *H Arterial Blood pCO2 (Temp correct) 22.0 L Arterial Blood pO2 (Temp corrected) 96.5 H Arterial Blood HCO3 19.3 L Arterial Blood Base Excess -1.7 Arterial Blood Oxygen Saturation 97.3 Harinder Test ACCEPTAB Arterial Blood Gas Puncture Site Right Radial Arterial Blood Carboxyhemoglobin 0.3 Arterial Blood Methemoglobin 0.3 Blood Gas A-a O2 Differential 163.4 H Oxyhemoglobin Percent 96.7 Total Hemoglobin 10.1 L Blood Gas Temperature 37.0 Blood Gas Respiration Rate 24.0 Blood Gas Actual Respiration Rate 24 Blood Gas Modality VENT - AC FiO2 40.0 Blood Gas Tidal Volume 550.0 Blood Gas Inspiratory Pressure 20.0 Blood Gas Critical Value Read Back Blanco CENTENO RN Blood Gas Notified Whom MM Blood Gas Notified Time 12/30/2016 4:56:33 AM Test 12/30/16 05:31 12/30/16 08:36 12/30/16 09:58 12/30/16 10:14 Bedside Glucose 102 92 84 Vancomycin Level Trough 15.6 Test 12/30/16 12:03 Bedside Glucose 84 Medications Medications Current Medications Famotidine 20 mg 20 mg Q12 IV Last administered on 12/30/16 09:48; Admin Dose 20 MG; Start 12/26/16 at 23:00 Levofloxacin/ Dextrose 150 ml @ 100 mls/hr Q24H IVPB Last administered on 12/29 22:33; Admin Dose 100 MLS/HR; Start 12/27/16 at 23:00 Cefepime HCl (Maxipime 2gm/50 ml (Pmx)) 50 ml @ 100 mls/hr Q12 IVPB Last administered on 12/30/16 09:49; Admin Dose 100 MLS/HR; Start 12/27/16 at 09:00 Dextrose (D50w Syringe) 25 ml Q15M PRN IV Till BS 80 mg/dL or above x2; Start 12/27/16 at 04:00 Diagnostic Test (Pha) (Accu-Chek) 1 ea Q1H XX Last administered on 12/30/16 12 :03; Admin Dose 1 EA; Start 12/27/16 at 04:00 Dextrose (D50w Syringe) 50 ml Q15M PRN IV Till BS 80 mg/dL or above x2; Start 12/27/16 at 04:00 Aspirin (Aspirin) 81 mg DAILY NGT Last administered on 12/30/16 09:48; Admin Dose 81 MG; Start 12/27/16 at 13:30 Atorvastatin Calcium 80 mg 80 mg HS NGT Last administered on 12/29/16 20:26; Admin Dose 80 MG; Start 12/27/16 at 21:00 Vancomycin HCl 1.25 gm/Sodium Chloride 250 ml @ 83.333 mls/ hr Q12H IVPB Last administered on 12/30/16 12:03; Admin Dose 83.333 MLS/HR; Start 12/28/16 at 23: 00 Ferric Sodium Gluconate Complex 125 mg/Sodium Chloride 110 ml @ 100 mls/hr Q24H IVPB Last administered on 12/30/16t 11:45; Admin Dose 100 MLS/HR; Start at 11:00; Stop 01/01/17 at 12:05 Norepinephrine/ Dextrose (Levophed/D5W) 500 ml @ 0 mls/hr TITRATE IV ; Start at 13:00 Furosemide (Lasix) 20 mg DAILY IV ; Start 12/30/16 at 13:00 Insulin Detemir (Levemir) 8 unit Q8 SC ; Start 12/30/16 at 14:00; Stop 12/31/16 at 13:59 Alan Scott DO Dec 30, 2016 13:13
[2016-12-30] MEDS ORDERED: INSULIN DETEMIR [LEVEMIR] 3ML CART SC SCH (14:00)
--- NOTE | 2016-12-31 11:24 | RADRPT ---
Vent Rate: 80 bpm RR Interval: 0 msec IA Interval: 136 msec QRS Duration: 72 msec QT Interval: 542 msec QTC Interval: 625 msec P-R-T [place]: 62 - 41 - 0 degrees Normal sinus rhythm ST amp; T wave abnormality, consider inferior ischemia ST amp; T wave abnormality, consider anterolateral ischemia Prolonged QT Abnormal ECG No previous tracing available for comparison Electronically Signed By: Felipe Lundberg [id number]
[2016-12-31 11:40] LABS: HEMOGLOBIN 6.4 g/dl (14.0-18.0)
[2016-12-31 11:41] LABS: PLATELET COUNT 306 10^3/UL (140-415); WHITE BLOOD COUNT 10.7 10^3/ul (4.8-10.8)
== END 2016-12-30 17:30 | disposition short-term general hospital (02) | DRG 871 ==
LOC: E/R 16:56 → EDBD 16:56 → ICU 21:06
PROVIDERS: ADMIT Family Medicine; ATTEND Family Medicine
PROC: 05H433Z Insertion of Infusion Device into Left Innominate Vein, Percutaneous Approach (ICD-10-PCS; principal; 2016-12-26)
PROC: 5A1945Z Respiratory Ventilation, 24-96 Consecutive Hours (ICD-10-PCS; 2016-12-26)
PROC: 0BH17EZ Insertion of Endotracheal Airway into Trachea, Via Natural or Artificial Opening (ICD-10-PCS; 2016-12-26)
PROC: 30243N1 Transfusion of Nonautologous Red Blood Cells into Central Vein, Percutaneous Approach (ICD-10-PCS; 2016-12-26)
DX: A40.8 Other streptococcal sepsis (principal); I21.4 Non-ST elevation (NSTEMI) myocardial infarction; I49.01 Ventricular fibrillation; J96.90 Respiratory failure, unspecified, unspecified whether with hypoxia or hypercapnia; R65.21 Severe sepsis with septic shock; E87.2 Acidosis; D62 Acute posthemorrhagic anemia; G93.41 Metabolic encephalopathy; I46.9 Cardiac arrest, cause unspecified; G93.1 Anoxic brain damage, not elsewhere classified; I42.9 Cardiomyopathy, unspecified; I25.10 Atherosclerotic heart disease of native coronary artery without angina pectoris; E11.9 Type 2 diabetes mellitus without complications; I10 Essential (primary) hypertension; E78.5 Hyperlipidemia, unspecified; K76.0 Fatty (change of) liver, not elsewhere classified; I51.89 Other ill-defined heart diseases; Z87.891 Personal history of nicotine dependence
CPT/HCPCS: 31500; 36415; 36430; 36600; 70450; 71010; 71275; 76937; 80048; 80053; 80202; 80306; 80307; 81003; 82140; 82150; 82310; 82550; 82553; 82728; 82803; 82962; 83540; 83605; 83615; 83690; 83735; 84100; 84436; 84466; 84479; 84484; 85014; 85018; 85025; 85045; 85384; 85610; 85730; 86850; 86900; 86901; 86920; 87040; 87081; 87086; 93005; 93306; 94002; 94003; 94770; 95819; 96365; 96366; 96367; 96368; 96372; 96375; 96376; J1940; J0330; J0692; J1644; J1815; J1956; J2916; J3370; J3475; J3480; J7030; J7040; J7042; J7050; P9016; Q9967